=== PATIENT | female | born 1945 | race Caucasian/White ===

== ENCOUNTER → 2016-11-17 | Outpatient (CLI) | payer OTHER ==
[2016-07-14 06:31] VITALS: BP 132/74
--- NOTE | 2016-11-17 13:05 | VAS ---
HISTORY: History of DVT right lower extremity, bilateral ankle swelling Study: Venous Doppler Comparison: None TECHNIQUE: Multiple valladares scale and color flow Doppler images of the deep venous system were obtaine d of the right and left lower extremity. FINDINGS: There is normal respiratory phasicity, compression and augmentation of the lower extremity veins wit hout evidence of acute DVT. IMPRESSION: 1. Negative for DVT. Reported By:
== END ==
LOC: RAD 12:06
PROVIDERS: ATTEND Internal Medicine
DX: Z86.718 Personal history of other venous thrombosis and embolism (principal); I82.890 Acute embolism and thrombosis of other specified veins
CPT/HCPCS: 93970

== ENCOUNTER → 2017-06-08 | Outpatient (CLI) | payer OTHER ==
[2016-07-14 06:31] VITALS: BP 132/74
--- NOTE | 2017-06-08 17:35 | RAD ---
HISTORY: Surgical clearance for eye surgery Study: PA and lateral views of the chest Comparison: 07/14/2016 Findings: There is a right IJ port noted in stable position. The lungs are clear without consolidation, effusio n or pneumothorax. The cardiac and mediastinal contours are within normal limits. The soft tissues a re unremarkable. IMPRESSION: 1. No acute cardiopulmonary abnormality. Reported By:
== END | disposition home or self-care (01) | DRG 951 ==
LOC: RAD 17:05
PROVIDERS: ATTEND Internal Medicine
DX: Z01.811 Encounter for preprocedural respiratory examination (principal); H02.004 Unspecified entropion of left upper eyelid; H02.001 Unspecified entropion of right upper eyelid
CPT/HCPCS: 71020

== ENCOUNTER 2017-12-11 16:17 | Observation (INO) | payer OTHER ==
[2017-12-11] MEDS ORDERED: NS 250 ML IV 250 ML IV ONE (17:10)
[2017-12-11 17:44] LABS: BASOPHILS % (AUTO) 0.3 % (0.2-1.0); EOSINOPHILS % (AUTO) 0.3 % (0.9-2.9); HEMATOCRIT 40.7 % (36.0-47.0); HEMOGLOBIN 14.3 g/dL (12.0-16.0); LYMPHOCYTES # (AUTO) 1.5 X10^3/uL (1.3-2.9); MEAN CORPUSCULAR HEMOGLOBIN 33.2 pg (27.0-34.0); MEAN CORPUSCULAR VOLUME 94.7 fL (80.0-100.0); MEAN PLATELET VOLUME 8.2 fL (7.4-11.0); MONOCYTES # (AUTO) 0.4 x10^3/uL (0.3-0.8); MONOCYTES % (AUTO) 6.4 % (0.0-13.0); PLATELET COUNT 183 X10^3/uL (150.0-450.0); RED CELL DISTRIBUTION WIDTH 13.3 % (11.6-16.5); WHITE BLOOD COUNT 5.9 X10^3/uL (3.6-10.0)
--- NOTE | 2017-12-11 17:55 | RAD ---
Exam: Portable chest History: 72-year-old female with asthma and hypertension Comparison: Previous chest radiograph from 06/08/2017 Findings: Right chest wall port is identified with the tip extending to the superior vena cava. Borde rline cardiomegaly is present. No significant vascular congestion however. Lungs are clear with no in filtrate or significant effusion on either side. Impression: No acute cardiopulmonary abnormality is seen on this exam. Reported By:
[2017-12-11 18:05] LABS: ALANINE AMINOTRANSFERASE 62 Units/L (12-78); ALBUMIN 4.3 g/dL (3.4-5.0); ALKALINE PHOSPHATASE 81 Units/L (46-116); ASPARTATE AMINO TRANSFERASE 49 Units/L (15-37); BLOOD UREA NITROGEN 19 mg/dL (7-18); CALCIUM 9.4 mg/dL (8.5-10.1); CARBON DIOXIDE 24.2 mmol/L (21-32); CHLORIDE 97 mmol/L (98-107); CKMB % 1.2 % (<4); COR NA(FOR HYPERGLY) 134 mmol/L (136-145); CREATINE KINASE 86 Units/L (26-192); CREATINE KINASE MB < 1.0 ng/mL (0-4.0); CREATININE 1.94 mg/dL (0.55-1.02); SODIUM 134 mmol/L (136-145); TOTAL PROTEIN 8.6 g/dL (6.4-8.2); TROPONIN I < 0.02 ng/mL (0-1.5); eGFR BLACK RACES 33 (>60); eGFR NON BLACK RACES 27 (>60)
[2017-12-11 18:08] VITALS: BMI 21.7
[2017-12-11] MEDS: NS 1000 ML 1,000 ML IV SCH (18:10)
[2017-12-11 22:41] LABS: BILIRUBIN,URINE NEGATIVE (NEGATIVE); BLOOD/HEMOGLOBIN,URINE NEGATIVE (NEGATIVE); GLUCOSE, URINE NEGATIVE (NEGATIVE); KETONES,URINE NEGATIVE (NEGATIVE); LEUKOCYTE ESTERASE ,URINE 1+ (NEGATIVE); NITRITES,URINE NEGATIVE (NEGATIVE); PROTEIN,URINE 2+ (NEGATIVE); UROBILINOGEN,URINE NORMAL (NORMAL)
[2017-12-11 22:55] LABS: COLOR,URINE YELLOW (YELLOW)
[2017-12-11 22:56] LABS: APPEARANCE,URINE SLIGHTLY HAZY (CLEAR); BACTERIA,URINE 1+ /HPF (NEGATIVE); GRANULAR CASTS,URINE RARE /LPF (NEGATIVE); HYALINE CASTS, URINE FEW /LPF (NEGATIVE); MUCUS,URINE FEW /HPF (NEGATIVE); RBC,URINE 0-2 /HPF (NONE SEEN); SQUAMOUS EPITHELIAL CELL,UR FEW /HPF (NEGATIVE)
[2017-12-11 23:26] LABS: CKMB % 1.3 % (<4); CREATINE KINASE 76 Units/L (26-192); CREATINE KINASE MB < 1.0 ng/mL (0-4.0); TROPONIN I < 0.02 ng/mL (0-1.5)
[2017-12-12 01:45] LABS: CKMB % 1.5 % (<4); CREATINE KINASE 69 Units/L (26-192); CREATINE KINASE MB < 1.0 ng/mL (0-4.0); TROPONIN I < 0.02 ng/mL (0-1.5)
[2017-12-12] MEDS: NS 1000 ML 1,000 ML IV SCH ×3 (04:30→19:40)
[2017-12-12 06:51] LABS: BASOPHILS % (AUTO) 0.4 % (0.2-1.0); EOSINOPHILS # (AUTO) 0.1 x10^3/uL (0.0-0.2); EOSINOPHILS % (AUTO) 2.2 % (0.9-2.9); HEMOGLOBIN 12.4 g/dL (12.0-16.0); LYMPHOCYTES # (AUTO) 1.4 X10^3/uL (1.3-2.9); LYMPHOCYTES % (AUTO) 39.7 % (21.0-51.0); MEAN CORPUSCULAR HEMOGLOBIN 32.8 pg (27.0-34.0); MEAN CORPUSCULAR HGB CONC 34.5 g/dL (33.0-35.0); MEAN PLATELET VOLUME 8.2 fL (7.4-11.0); MONOCYTES # (AUTO) 0.4 x10^3/uL (0.3-0.8); MONOCYTES % (AUTO) 10.3 % (0.0-13.0); NEUTROPHILS # (AUTO) 1.7 x10^3/uL (2.2-4.8); NEUTROPHILS % (AUTO) 47.4 % (42.0-75.0); PLATELET COUNT 136 X10^3/uL (150.0-450.0); RED BLOOD COUNT 3.79 X10^6/uL (3.5-5.4); RED CELL DISTRIBUTION WIDTH 13.1 % (11.6-16.5); WHITE BLOOD COUNT 3.5 X10^3/uL (3.6-10.0)
[2017-12-12 06:56] LABS: ALANINE AMINOTRANSFERASE 49 Units/L (12-78); ALBUMIN 3.4 g/dL (3.4-5.0); ALKALINE PHOSPHATASE 63 Units/L (46-116); ASPARTATE AMINO TRANSFERASE 41 Units/L (15-37); BLOOD UREA NITROGEN 16 mg/dL (7-18); CALCIUM 8.5 mg/dL (8.5-10.1); CARBON DIOXIDE 23.6 mmol/L (21-32); CHLORIDE 104 mmol/L (98-107); CREATININE 1.38 mg/dL (0.55-1.02); SODIUM 137 mmol/L (136-145); TOTAL PROTEIN 6.9 g/dL (6.4-8.2); eGFR BLACK RACES 49 (>60); eGFR NON BLACK RACES 40 (>60)
[2017-12-12] MEDS: ROCEPHIN VIAL 1 GM 1 GM in NS 100 ML IV + SPIKE MINIBAG* 100 ML IV SCH (08:31)
[2017-12-12] MEDS ORDERED: ROCEPHIN 1 GM IV PREMIX 1 GM/50 ML IV.SOLN. IV SCH (09:00)
[2017-12-12] MEDS ORDERED: XANAX PO PRN (10:37)
[2017-12-12] MEDS ORDERED: ARTIFICIAL TEARS DROPS AFFEYE SCH (10:38)
[2017-12-12] MEDS ORDERED: LEXAPRO ONE (10:50)
[2017-12-12] MEDS: LEXAPRO PO SCH (10:57)
[2017-12-12] MEDS: SYNTHROID 125 mcg TAB PO SCH (10:57)
[2017-12-12] MEDS: XARELTO PO SCH (10:57)
--- NOTE | 2017-12-12 11:43 | DR.UPDATE ---
H&P Update History and Physical Update: WAS SEEN IN THE OFFICE TODAY. A H&P WAS COMPLETED PRIOR TO ADMISSION. SHE WAS ADMITTED FOR HYPOTENSION, AND DIZZINESS. PATIENT HAS BEEN SEEN AND EXAMINED WITH NO CHANGES NOTED TO H&P. Changes noted: NO Yes with the following:
--- NOTE | 2017-12-12 11:51 | PCM.PROG ---
Progress Note - Progress Note for Day of Date: 12/12/17 - Subjective Subjective: WAS ADMITTED FOR HYPOTENSION AND DIZZINESS. TODAY, SHE IS ALERT AND ORIENTED, LYING IN BED ON MORNING ROUNDS. SHE REPORTS GENERALIZED WEAKNESS, BUT DENIES DIZZINESS TODAY. ON EXAMINATION, HEART IS REGULAR IN RATE AND RHYTHM. BILATERAL LUNGS ARE CLEAR TO AUSCULTATION ABDOMEN IS ROUND, SOFT, AND NON-TENDER WITH NORMAL BOWEL SOUNDS NOTED TO ALL QUADRANTS. HER VITALS THIS MORNING ARE 98.0-49-18-98%-100/56. ABNORMAL LAB VALUES INCLUDE THE FOLLOWING: WBC 3.5, CREATININE 1.38, AST 41. ON ADMISSION, A URINALYSIS REVEALED WBC 5-10, RBC 0-2, BACTERIA 1+, LEUKOCYTES 1+. CARDIAC ENZYMES AND EKGS HAVE BEEN WITHIN NORMAL LIMTIS. TODAY, WE WILL START ROCEPHIN 1GM IV DAILY AND CONTINUE WITH IV HYDRATION. WE WILL RESUME HOME MEDICATIONS. OTHERWISE, WE PLAN TO FOLLOW UP WITH AM LABS AND CONTINUE TO MONITOR PATIENT. - Past Medical Family Social History Past Med/Fam/Surg Hx: No changes since H&P Allergies: Allergies Penicillins Allergy (Verified 12/12/17 09:01) - Review of Systems ROS: No change since H&P - Vital Signs and I&O's Vital Signs: Temperature 98.0 F Pulse Rate [Left Brachial] 49 Respiratory Rate 18 Blood Pressure [Left Arm] 100/56 Blood Pressure [Right Arm] 101/60 Blood Pressure 132/74 O2 Sat by Pulse Oximetry 98 Intake and Output: Intake & Output 12/09/17 12/10/17 12/11/17 12/12/17 11:59 11:59 11:59 11:59 Intake Total 1803 Output Total 500 Balance 1303 - Physical Exam Oriented: Normal Eyes: Normal Ear: Normal Nose: Normal Throat: Normal Respiratory: Normal Cardiovascular: Normal : Normal Auscultation: Bowel Sounds: Normal Palpation: Normal Tenderness: Normal Skin: Normal Musculoskeletal: Normal Psychiatric: Normal Mood Description: Calm Affect: Normal Speech Pattern: Clear, Appropriate - Laboratory and Diagnostics Result Diagrams: 12/12/17 06:30 12/12/17 06:30 Labs: Laboratory WBC 3.5 X10^3/uL (3.6-10.0) L 12/12/17 06:30 RBC 3.79 X10^6/uL (3.5-5.4) 12/12/17 06:30 Hgb 12.4 g/dL (12.0-16.0) 12/12/17 06:30 Hct 36.0 % (36.0-47.0) 12/12/17 06:30 MCV 95.0 fL (80.0-100.0) 12/12/17 06:30 MCH 32.8 pg (27.0-34.0) 12/12/17 06:30 MCHC 34.5 g/dL (33.0-35.0) 12/12/17 06:30 RDW 13.1 % (11.6-16.5) 12/12/17 06:30 Plt Count 136 X10^3/uL (150.0-450.0) L 12/12/17 06:30 MPV 8.2 fL (7.4-11.0) 12/12/17 06:30 Neut % (Auto) 47.4 % (42.0-75.0) 12/12/17 06:30 Lymph % (Auto) 39.7 % (21.0-51.0) 12/12/17 06:30 [place] % (Auto) 10.3 % (0.0-13.0) 12/12/17 06:30 Eos % (Auto) 2.2 % (0.9-2.9) 12/12/17 06:30 Baso % (Auto) 0.4 % (0.2-1.0) 12/12/17 06:30 Neut # (Auto) 1.7 x10^3/uL (2.2-4.8) L 12/12/17 06:30 Lymph # (Auto) 1.4 X10^3/uL (1.3-2.9) 12/12/17 06:30 [place] # (Auto) 0.4 x10^3/uL (0.3-0.8) 12/12/17 06:30 Eos # (Auto) 0.1 x10^3/uL (0.0-0.2) 12/12/17 06:30 Baso # (Auto) 0.0 X10^3/uL (0.0-0.1) 12/12/17 06:30 Absolute Nucleated RBC 0.0 /100WBC 05/08/18 06:30 Sodium 137 mmol/L (136-145) 12/12/17 06:30 Corrected Sodium TNP 12/12/17 06:30 Potassium 3.7 mmol/L (3.5-5.1) 12/12/17 06:30 Chloride 104 mmol/L (98-107) 12/12/17 06:30 Carbon Dioxide 23.6 mmol/L (21-32) 12/12/17 06:30 BUN 16 mg/dL (7-18) 12/12/17 06:30 Creatinine 1.38 mg/dL (0.55-1.02) H 12/12/17 06:30 Est GFR (MDRD) Af Amer 49 (>60) L 12/12/17 06:30 Est GFR (MDRD) Non-Af 40 (>60) L 12/12/17 06:30 Glucose 86 mg/dL (65-99) 12/12/17 06:30 Calcium 8.5 mg/dL (8.5-10.1) 12/12/17 06:30 Corrected Calcium TNP 12/12/17 06:30 Total Bilirubin 0.90 mg/dL (0.2-1.0) 12/12/17 06:30 AST 41 Units/L (15-37) H 12/12/17 06:30 ALT 49 Units/L (12-78) 12/12/17 06:30 Alkaline Phosphatase 63 Units/L (46-116) 12/12/17 06:30 Creatine Kinase 69 Units/L (26-192) 12/12/17 01:13 CK-MB (CK-2) < 1.0 ng/mL (0-4.0) 12/12/17 01:13 CK/CKMB % Calc 1.5 % (<4) 12/12/17 01:13 Troponin I < 0.02 ng/mL (0-1.5) 12/12/17 01:13 Total Protein 6.9 g/dL (6.4-8.2) 12/12/17 06:30 Albumin 3.4 g/dL (3.4-5.0) 12/12/17 06:30 Globulin 3.5 g/dL (2.5-4.5) 12/12/17 06:30 Albumin/Globulin Ratio 1.0 Ratio (1.1-2.1) L 12/12/17 06:30 Specimen Type Clean catch urine 12/11/17 22:31 Urine Color Yellow (YELLOW) 12/11/17 22: Urine Appearance Slightly hazy (CLEAR) 12/11/17 22:31 Urine pH 5.0 (5.0 - 8.0) 12/11/17 22:31 Ur Specific [place] 1.020 (1.000-1.030) 12/11/17 22:31 Urine Protein 2+ (NEGATIVE) 12/11/17 22:31 Urine Glucose (UA) Negative (NEGATIVE) 12/11/17 22: Urine Ketones Negative (NEGATIVE) 12/11/17 22: Urine Occult Blood Negative (NEGATIVE) 12/11/17 22: Urine Nitrite Negative (NEGATIVE) 12/11/17 22: Urine Bilirubin Negative (NEGATIVE) 12/11/17 22:31 Urine Urobilinogen Normal (NORMAL) 12/11/17 22:31 Ur Leukocyte Esterase 1+ (NEGATIVE) 12/11/17 22: Urine RBC 0-2 /HPF (NONE SEEN) 12/11/17 22:31 Urine WBC 5-10 /HPF (NONE SEEN) 12/11/17 22:31 Ur Squamous Epith Cells Few /HPF (NEGATIVE) 12/11/17 22:31 Urine Bacteria 1+ /HPF (NEGATIVE) 12/11/17 22:31 Hyaline Casts Few /LPF (NEGATIVE) 12/11/17 22:31 Granular Casts Rare /LPF (NEGATIVE) 12/11/17 22:31 Urine Mucus Few /HPF (NEGATIVE) 12/11/17 22:31 Ur Culture Indicated? Yes/culture set up 12/11/17 22:31 - Plan (1) Hypotension Status: Acute Qualifiers: Hypotension type: unspecified hypotension type Qualified Code(s): I95.9 - Hypotension, unspecified Plan: NORMAL SALINE AT 75ML/HR, CONTINUE TO MONITOR (2) Dizziness Status: Acute (3) Dehydration Status: Acute Plan: NORMAL SALINE AT 75ML/HR, CONTINUE TO MONITOR (4) Urinary tract infection Status: Acute Qualifiers: Urinary tract infection type: acute cystitis Hematuria presence: without hematuria Qualified Code(s): N30.00 - Acute cystitis without hematuria Plan: ROCEPHIN 1GM IV DAILY, CONTINUE TO MONITOR
[2017-12-13 06:36] LABS: BASOPHILS % (AUTO) 0.7 % (0.2-1.0); EOSINOPHILS # (AUTO) 0.1 x10^3/uL (0.0-0.2); EOSINOPHILS % (AUTO) 2.7 % (0.9-2.9); HEMATOCRIT 34.9 % (36.0-47.0); HEMOGLOBIN 12.2 g/dL (12.0-16.0); LYMPHOCYTES # (AUTO) 1.1 X10^3/uL (1.3-2.9); LYMPHOCYTES % (AUTO) 33.2 % (21.0-51.0); MEAN CORPUSCULAR HEMOGLOBIN 33.2 pg (27.0-34.0); MEAN CORPUSCULAR HGB CONC 34.9 g/dL (33.0-35.0); MEAN CORPUSCULAR VOLUME 95.1 fL (80.0-100.0); MONOCYTES # (AUTO) 0.3 x10^3/uL (0.3-0.8); MONOCYTES % (AUTO) 10.3 % (0.0-13.0); NEUTROPHILS # (AUTO) 1.8 x10^3/uL (2.2-4.8); NEUTROPHILS % (AUTO) 53.1 % (42.0-75.0); PLATELET COUNT 128 X10^3/uL (150.0-450.0); RED BLOOD COUNT 3.67 X10^6/uL (3.5-5.4); RED CELL DISTRIBUTION WIDTH 12.9 % (11.6-16.5); WHITE BLOOD COUNT 3.4 X10^3/uL (3.6-10.0)
[2017-12-13 07:01] LABS: ALANINE AMINOTRANSFERASE 47 Units/L (12-78); ALBUMIN 3.1 g/dL (3.4-5.0); ALKALINE PHOSPHATASE 58 Units/L (46-116); ASPARTATE AMINO TRANSFERASE 38 Units/L (15-37); BLOOD UREA NITROGEN 9 mg/dL (7-18); CALCIUM 7.7 mg/dL (8.5-10.1); CARBON DIOXIDE 22.6 mmol/L (21-32); CHLORIDE 106 mmol/L (98-107); COR CA(FOR HYPOALB) 8.4 mg/dL (8.5-10.1); CREATININE 1.19 mg/dL (0.55-1.02); SODIUM 140 mmol/L (136-145); TOTAL PROTEIN 6.4 g/dL (6.4-8.2); eGFR BLACK RACES 58 (>60); eGFR NON BLACK RACES 48 (>60)
[2017-12-13] MEDS ORDERED: LEXAPRO ONE (08:05)
[2017-12-13] MEDS: XARELTO PO SCH (08:30)
[2017-12-13] MEDS: ROCEPHIN VIAL 1 GM 1 GM in NS 100 ML IV + SPIKE MINIBAG* 100 ML IV SCH (08:30)
[2017-12-13] MEDS: LEXAPRO PO SCH (08:30)
[2017-12-13] MEDS: SYNTHROID 125 mcg TAB PO SCH (08:30)
[2017-12-13 08:43] VITALS: BP 113/59
[2017-12-13] MEDS ORDERED: PATIENT'S HOME MEDICATION OP SCH (09:00)
[2017-12-13] MEDS: NS 1000 ML 1,000 ML IV SCH (10:29)
== END 2017-12-13 13:00 | disposition home or self-care (01) ==
LOC: OBS 16:17
PROVIDERS: ADMIT Internal Medicine; ATTEND Internal Medicine
DX: I95.9 Hypotension, unspecified (principal); R42 Dizziness and giddiness; E86.0 Dehydration; N30.00 Acute cystitis without hematuria; R94.31 Abnormal electrocardiogram [ECG] [EKG]; Z86.2 Personal history of diseases of the blood and blood-forming organs and certain disorders involving the immune mechanism
CPT/HCPCS: 36415; 70450; 71045; 80053; 81001; 82550; 82553; 84484; 85025; 86140; 87086; 93005; 94760; 96365; 96374; 99284; A4216; A4222; G0378; J0696; J2270

== ENCOUNTER 2017-12-13 22:05 | Observation (INO) | payer OTHER ==
--- NOTE | 2017-12-13 22:52 | DR.GENAD ---
HPI - PCP Primary Care Physician: WANDA - Complaint/Symptoms Chief Complaint Doctors Comments: The grandson reports that he was talking to patient while she was in the recliner and she passed out s/p hyperventilating. She did not awakened until approximately ten minutes. She was then brought to the ED for evaluation. She was alert in no acute distress. She was discharged from the hospital earlier today. Chief Complaint:: POSSIBLE SYNCOPAL EPISODE, ABRASION TO LEFT FORMAN, Self Treatment fo Chief Complaint: NONE - Source History Provided: Patient - Mode of Arrival Mode of Arrival: Stretcher - Timing Onset of Chief Complaint: 12/13/17 PMH - PMH Past Medical History: Yes Past Medical History: Hypothyroidism, PUD Past Surgical History: Yes Surgical History: Cholecystectomy, Hysterectomy - Family History History of Family Medical Conditions: Yes Family Medical History: Cancer, Hypertension - Social History Does patient currently use any type of tobacco product: No Have you used tobacco products in the last 12 months: No Type of Tobacco Use: None Does any household member use tobacco: No Alcohol Use: None Do you use any recreational Drugs:: No Lives With: Family Lives Where: Home - infectious screening In the last 2 months have you had wt loss of >10#?: NO Have you had fever, night sweats or hemotysis?: No Have you traveled outside the country in the last 6 months?: No Isolation: Standard ROS - Review of Systems Eyes: No Symptoms Reported ENTM: No Symptoms Reported Respiratoy: No Symptoms Reported Cardiovascular: No Symptoms Reported Gastrointestinal/Abdominal: No Symptoms Reported Genitourinary: No Symptoms Reported Neurological: No Symptoms Reported Musculoskeletal: No Symptoms Reported Integumentary: No Symptoms Reported Hematologic/Lymphatic: No Symptoms Reported Endocrine: No Symptoms Reported Psychiatric: No Symptoms Reported All Other Systems: Reviewed and Negative PE - Vital Signs Vitals: Temperature 98.1 F Pulse Rate [Right Brachial] 64 Pulse Rate 74 Respiratory Rate 16 Blood Pressure [Left Arm] 113/59 Blood Pressure [Right Arm] 111/59 Blood Pressure 123/66 O2 Sat by Pulse Oximetry 99 - General Limitations: No Limitations General Appearance: Alert, In No Apparent Distress - Head Head Exam: Normal Inspection, Atraumatic - Eyes Eye exam: Normal Appearance, PERRL, EOMI - ENT ENT Exam: Normal Exam, Normal Oropharynx, Normal External Ear Exam External Ear Exam: Normal External Inspection TM/Canal Exam: Bilateral Normal Nose Exam: Normal Nose Exam Mouth Exam: Normal Inspection Throat Exam: Normal Inspection - Neck Neck Exam: Normal Inspection - Chest Chest Inspection: Normal Inspection - Respiratory Respiratory Exam: Normal Lung Sounds Bilat Respiratory Exam: Bilateral Clear to Auscultation - Cardiovascular Cardiovascular Exam: Regular Rate, Normal Rhythm - Abdominal Exam Abdominal Exam: Normal Inspection, Normal Bowel Sounds Abdominal Tenderness: Other (iliostomy). negative: RUQ, RLQ, LUQ, LLQ, Epigastrium, Suprapubic, Diffuse, Mild, Moderate, Severe - Extremities Extremities Exam: Normal Inspection, Full ROM - Back Back Exam: Normal Inspection - Neurologic Neurological Exam: Alert, Oriented X3, CN II-XII Intact - Psychiatric Psychiatric Exam: Normal Affect - Skin Skin Exam: Warm, Dry, Intact Course - Consultation Called: 00:25 (Dr Arredondo agreed to admit for further evaluation) ROR - Labs Reviewed Result Diagrams: 12/13/17 23:16 12/13/17 23:16 Laboratory: WBC 12.3 X10^3/uL (3.6-10.0) H D 12/13/17 23:16 RBC 4.41 X10^6/uL (3.5-5.4) 12/13/17 23:16 Hgb 14.6 g/dL (12.0-16.0) D 12/13/17 23:16 Hct 43.3 % (36.0-47.0) 12/13/17 23:16 MCV 98.3 fL (80.0-100.0) 12/13/17 23:16 MCH 33.2 pg (27.0-34.0) 12/13/17 23:16 MCHC 33.8 g/dL (33.0-35.0) 12/13/17 23:16 RDW 13.2 % (11.6-16.5) 12/13/17 23:16 Plt Count 147 X10^3/uL (150.0-450.0) L 12/13/17 23:16 MPV 8.3 fL (7.4-11.0) 12/13/17 23:16 Neut % (Auto) 84.1 % (42.0-75.0) H 12/13/17 23:16 Lymph % (Auto) 9.1 % (21.0-51.0) L 12/13/17 23:16 [place] % (Auto) 6.5 % (0.0-13.0) 12/13/17 23:16 Eos % (Auto) 0.1 % (0.9-2.9) L 12/13/17 23:16 Baso % (Auto) 0.2 % (0.2-1.0) 12/13/17 23:16 Neut # (Auto) 10.3 x10^3/uL (2.2-4.8) H 12/13/17 23:16 Lymph # (Auto) 1.1 X10^3/uL (1.3-2.9) L 12/13/17 23:16 [place] # (Auto) 0.8 x10^3/uL (0.3-0.8) 12/13/17 23:16 Eos # (Auto) 0.0 x10^3/uL (0.0-0.2) 12/13/17 23:16 Baso # (Auto) 0.0 X10^3/uL (0.0-0.1) 12/13/17 23:16 Absolute Nucleated RBC 0.1 /100WBC 12/13/17 23:16 Sodium 138 mmol/L (136-145) 12/13/17 23:16 Corrected Sodium 139 mmol/L (136-145) 12/13/17 23:16 Potassium 3.9 mmol/L (3.5-5.1) 12/13/17 23:16 Chloride 101 mmol/L (98-107) 12/13/17 23:16 Carbon Dioxide 16.1 mmol/L (21-32) L 12/13/17 23:16 BUN 10 mg/dL (7-18) 12/13/17 23:16 Creatinine 1.65 mg/dL (0.55-1.02) H 12/13/17 23:16 Est GFR (MDRD) Af Amer 40 (>60) L 12/13/17 23:16 Est GFR (MDRD) Non-Af 33 (>60) L 12/13/17 23:16 Glucose 156 mg/dL (65-99) H 12/13/17 23:16 Calcium 8.8 mg/dL (8.5-10.1) 12/13/17 23:16 Corrected Calcium TNP 12/13/17 23:16 Total Bilirubin 0.60 mg/dL (0.2-1.0) 12/13/17 23:16 AST 54 Units/L (15-37) H 12/13/17 23:16 ALT 58 Units/L (12-78) 12/13/17 23:16 Alkaline Phosphatase 74 Units/L (46-116) 12/13/17 23:16 C-Reactive Protein 0.80 mg/L (0-3.0) 12/13/17 23:16 Total Protein 8.0 g/dL (6.4-8.2) 12/13/17 23:16 Albumin 3.9 g/dL (3.4-5.0) 12/13/17 23:16 Globulin 4.1 g/dL (2.5-4.5) 12/13/17 23:16 Albumin/Globulin Ratio 1.0 Ratio (1.1-2.1) L 12/13/17 23:16 - XRAY XRAY Interpreted by: Radiologist (CT Brain: There is no acute intracranial hemorrhage, mass or mass effect. Ventricles and sulci are relatively normal. No extra axial fluid collection or abnormal area of hypoattenuation suggest infarction seen. Review of bone windows shows clear paranasal sinuses and mastoid air cells. No osseous lesion identified. Impression: No acute intracranial hemorrhage or change from the prior. Chest: No acute chest proces. kBorderline enlarged heart.) - Diagnosis Discharge Problem: Syncope Qualifiers: Syncope type: unspecified Qualified Code(s): R55 - Syncope and collapse - Discharge Plan Condition: Stable - Follow ups/Referrals Follow ups/Referrals: Israel Soni [Primary Care Provider] - 3 days - Instructions
[2017-12-13] MEDS ORDERED: MORPHINE SULFATE INJ 2 MG INJ IVP ONE (23:04)
[2017-12-13] MEDS ORDERED: MORPHINE SULFATE INJ 2 MG INJ ONE (23:09)
[2017-12-13 23:27] LABS: BASOPHILS % (AUTO) 0.2 % (0.2-1.0); EOSINOPHILS % (AUTO) 0.1 % (0.9-2.9); HEMATOCRIT 43.3 % (36.0-47.0); HEMOGLOBIN 14.6 g/dL (12.0-16.0); LYMPHOCYTES # (AUTO) 1.1 X10^3/uL (1.3-2.9); LYMPHOCYTES % (AUTO) 9.1 % (21.0-51.0); MEAN CORPUSCULAR HEMOGLOBIN 33.2 pg (27.0-34.0); MEAN CORPUSCULAR HGB CONC 33.8 g/dL (33.0-35.0); MEAN CORPUSCULAR VOLUME 98.3 fL (80.0-100.0); MEAN PLATELET VOLUME 8.3 fL (7.4-11.0); MONOCYTES # (AUTO) 0.8 x10^3/uL (0.3-0.8); MONOCYTES % (AUTO) 6.5 % (0.0-13.0); NEUTROPHILS # (AUTO) 10.3 x10^3/uL (2.2-4.8); NEUTROPHILS % (AUTO) 84.1 % (42.0-75.0); PLATELET COUNT 147 X10^3/uL (150.0-450.0); RED BLOOD COUNT 4.41 X10^6/uL (3.5-5.4); RED CELL DISTRIBUTION WIDTH 13.2 % (11.6-16.5); WHITE BLOOD COUNT 12.3 X10^3/uL (3.6-10.0)
[2017-12-13 23:35] LABS: ALANINE AMINOTRANSFERASE 58 Units/L (12-78); ALBUMIN 3.9 g/dL (3.4-5.0); ALKALINE PHOSPHATASE 74 Units/L (46-116); ASPARTATE AMINO TRANSFERASE 54 Units/L (15-37); BLOOD UREA NITROGEN 10 mg/dL (7-18); CALCIUM 8.8 mg/dL (8.5-10.1); CARBON DIOXIDE 16.1 mmol/L (21-32); CHLORIDE 101 mmol/L (98-107); COR NA(FOR HYPERGLY) 139 mmol/L (136-145); CREATININE 1.65 mg/dL (0.55-1.02); SODIUM 138 mmol/L (136-145); eGFR BLACK RACES 40 (>60); eGFR NON BLACK RACES 33 (>60)
--- NOTE | 2017-12-13 23:46 | RAD ---
Chest AP portable Indication: Syncope and altered mental status Comparison: 12/11/2017 Findings: Port-A-Cath tip is over the SVC. There is no pneumothorax, large effusion or dense consolid ation. Heart size upper limits of normal for technique. Impression: No acute chest process. Borderline enlarged heart Reported By:
--- NOTE | 2017-12-13 23:48 | CT ---
CT head without contrast Indication: Syncope and altered mental status Comparison: 07/14/2016 Technique: Axial images from the skullbase to the vertex without contrast. Coronal and sagittal refor mats provided. Findings: There is no acute intracranial hemorrhage, mass or mass effect. Ventricles and sulci are re latively normal. No extra-axial fluid collection or abnormal area of hypoattenuation suggest infarcti on seen. Review of bone windows shows clear paranasal sinuses and mastoid air cells. No osseous lesion identif ied. Impression: No acute intracranial hemorrhage or change from the prior Reported By:
[2017-12-14 00:56] LABS: CKMB % 1.1 % (<4); CREATINE KINASE 291 Units/L (26-192); CREATINE KINASE MB 3.1 ng/mL (0-4.0); TROPONIN I < 0.02 ng/mL (0-1.5)
[2017-12-14] MEDS: NS 1000 ML 1,000 ML IV SCH ×2 (02:45→18:09)
[2017-12-14 02:55] VITALS: BMI 22.4
[2017-12-14 05:07] LABS: BILIRUBIN,URINE NEGATIVE (NEGATIVE); BLOOD/HEMOGLOBIN,URINE 2+ (NEGATIVE); GLUCOSE, URINE NEGATIVE (NEGATIVE); KETONES,URINE 3+ (NEGATIVE); LEUKOCYTE ESTERASE ,URINE NEGATIVE (NEGATIVE); NITRITES,URINE NEGATIVE (NEGATIVE); PROTEIN,URINE 1+ (NEGATIVE); UROBILINOGEN,URINE NORMAL (NORMAL)
[2017-12-14 05:16] LABS: APPEARANCE,URINE CLEAR (CLEAR); COLOR,URINE YELLOW (YELLOW); RBC,URINE 0-2 /HPF (NONE SEEN)
[2017-12-14 05:17] LABS: BACTERIA,URINE NEGATIVE /HPF (NEGATIVE); MUCUS,URINE FEW /HPF (NEGATIVE); SQUAMOUS EPITHELIAL CELL,UR FEW /HPF (NEGATIVE)
[2017-12-14 05:23] LABS: ALBUMIN 3.3 g/dL (3.4-5.0); CALCIUM 8.1 mg/dL (8.5-10.1); CARBON DIOXIDE 21.3 mmol/L (21-32); COR CA(FOR HYPOALB) 8.7 mg/dL (8.5-10.1); CREATININE 1.32 mg/dL (0.55-1.02); TOTAL PROTEIN 6.7 g/dL (6.4-8.2)
[2017-12-14 05:29] LABS: BASOPHILS % (AUTO) 0.2 % (0.2-1.0); HEMATOCRIT 34.6 % (36.0-47.0); LYMPHOCYTES # (AUTO) 1.1 X10^3/uL (1.3-2.9); LYMPHOCYTES % (AUTO) 12.2 % (21.0-51.0); MEAN CORPUSCULAR HEMOGLOBIN 32.8 pg (27.0-34.0); MEAN CORPUSCULAR HGB CONC 34.7 g/dL (33.0-35.0); MEAN CORPUSCULAR VOLUME 94.5 fL (80.0-100.0); MEAN PLATELET VOLUME 8.1 fL (7.4-11.0); MONOCYTES # (AUTO) 0.5 x10^3/uL (0.3-0.8); NEUTROPHILS # (AUTO) 7.2 x10^3/uL (2.2-4.8); NEUTROPHILS % (AUTO) 81.6 % (42.0-75.0); PLATELET COUNT 152 X10^3/uL (150.0-450.0); RED BLOOD COUNT 3.67 X10^6/uL (3.5-5.4); WHITE BLOOD COUNT 8.8 X10^3/uL (3.6-10.0)
[2017-12-14] MEDS ORDERED: CARBOXYMETHYLCELLULOSE SODIUM AFFEYE SCH (09:45)
[2017-12-14] MEDS ORDERED: PATIENT'S HOME MEDICATION (Misc Home Med 1 EA) AFFEYE SCH (09:45)
[2017-12-14] MEDS ORDERED: PATIENT'S HOME MEDICATION (Rivaroxaban [Xarelto] 20 MG) PO SCH (09:45)
[2017-12-14] MEDS ORDERED: LEXAPRO ONE (10:48)
--- NOTE | 2017-12-14 11:49 | VAS ---
HISTORY: Concern for carotid artery stenosis. Syncope. Technique: Multiple valladares scale and color flow Doppler images of the right and left carotid arterial s ystem were obtained. The vertebral arterial system was evaluated as well. Findings: Nonocclusive color flow Doppler is seen throughout the right and left carotid arterial system. No hem odynamically significant carotid arterial stenosis is seen based on velocity criteria. There is mild bilateral carotid intimal thickening but without evidence for high-grade stenosis (>70%) or occlusion of the carotid arteries. The right and left vertebral artery demonstrate antegrade flow. IMPRESSION: Mild bilateral carotid intimal thickening but without evidence for high-grade stenosis or occlusion o f the carotid arteries, based on Doppler velocity criteria. Appropriate, antegrade, vertebral arterial flow. Peak right ICA velocity: 75 centimeter/seconds. Peak right CCA velocity: 72 centimeter/seconds. Peak left ICA velocity: 75 centimeter/seconds. Peak left CCA velocity: 96 centimeter/seconds. Right ICA to CCA ratio: 1.1. Left ICA to CCA ratio: 0.78. Reported By:
[2017-12-14] MEDS: LEXAPRO PO SCH (11:50)
[2017-12-14] MEDS: CIPRO IV 400 MG PREMIX* 400 MG/200 ML IV.SOLN. IV SCH ×2 (11:50→20:52)
[2017-12-14] MEDS: SYNTHROID 125 mcg TAB PO SCH (11:50)
[2017-12-14] MEDS: XARELTO PO SCH (11:51)
--- NOTE | 2017-12-14 11:51 | MRI ---
HISTORY: Dizziness. Blurred vision. Study: MR brain without contrast. Comparison: Head CT dated 12/13/2017. Technique: Multiplanar multi-sequence MRI of the brain was obtained without contrast utilizing a [facility] departmental protocol pre Findings: The midline structures are unremarkable. The evaluation of the brain parenchyma demonstrat es no abnormal signal characteristics to suggest intraparenchymal mass or hemorrhage. No extra-axial fluid collections are observed. The ventricular system is symmetric and nondilated. The CP angle is normal in its appearance without brainstem mass or evidence for acoustic neuroma. The flow voids on both T1 and T2 weighted imaging for unremarkable. Evaluation of the diffusion weighted imaging do es not demonstrate abnormal signal characteristics to suggest acute ischemic change. The extracrania l structures are unremarkable. IMPRESSION: Unremarkable MRI of the brain without contrast. Reported By:
--- NOTE | 2017-12-14 11:56 | MRI ---
HISTORY: Dizziness. Blurred vision. Near syncope. Study: MR angiogram of the brain without contrast. Comparison: Head CT dated 12/13/2017. Technique: 3-D [id number] imaging of the intracranial circulation was performed. Findings: The anterior circulation demonstrates normal anatomic findings. The internal carotid arter y, M1 segments, and A1 segments are patent without evidence of flow-limiting stenosis. No aneurysmal changes or evidence for vascular malformation can be identified. There is a origin of the pos terior cerebral artery on the left with absent P1 segment on the left. There is a small posterior cer ebral artery on the right. The basal vertebral system is normal in its appearance with dominant righ t vertebral artery. IMPRESSION: origin of the [employer] on the left with absent ipsilateral P1 segment. Otherwise, unremarkable MRA o f the brain. Reported By:
[2017-12-15 05:23] LABS: BASOPHILS % (AUTO) 0.2 % (0.2-1.0); EOSINOPHILS # (AUTO) 0.1 x10^3/uL (0.0-0.2); EOSINOPHILS % (AUTO) 1.5 % (0.9-2.9); HEMATOCRIT 35.9 % (36.0-47.0); HEMOGLOBIN 12.2 g/dL (12.0-16.0); LYMPHOCYTES % (AUTO) 29.1 % (21.0-51.0); MEAN CORPUSCULAR HGB CONC 33.9 g/dL (33.0-35.0); MEAN CORPUSCULAR VOLUME 97.3 fL (80.0-100.0); MEAN PLATELET VOLUME 8.3 fL (7.4-11.0); MONOCYTES # (AUTO) 0.5 x10^3/uL (0.3-0.8); MONOCYTES % (AUTO) 7.3 % (0.0-13.0); NEUTROPHILS # (AUTO) 4.2 x10^3/uL (2.2-4.8); NEUTROPHILS % (AUTO) 61.9 % (42.0-75.0); PLATELET COUNT 154 X10^3/uL (150.0-450.0); RED BLOOD COUNT 3.69 X10^6/uL (3.5-5.4); RED CELL DISTRIBUTION WIDTH 13.4 % (11.6-16.5); WHITE BLOOD COUNT 6.8 X10^3/uL (3.6-10.0)
[2017-12-15] MEDS: NS 1000 ML 1,000 ML IV SCH ×3 (05:31→19:55)
[2017-12-15 05:33] LABS: ALANINE AMINOTRANSFERASE 44 Units/L (12-78); ALBUMIN 3.2 g/dL (3.4-5.0); ALKALINE PHOSPHATASE 63 Units/L (46-116); ASPARTATE AMINO TRANSFERASE 48 Units/L (15-37); BLOOD UREA NITROGEN 6 mg/dL (7-18); CALCIUM 8.7 mg/dL (8.5-10.1); CARBON DIOXIDE 22.2 mmol/L (21-32); CHLORIDE 110 mmol/L (98-107); COR CA(FOR HYPOALB) 9.3 mg/dL (8.5-10.1); SODIUM 144 mmol/L (136-145); TOTAL PROTEIN 6.7 g/dL (6.4-8.2); eGFR BLACK RACES 48 (>60); eGFR NON BLACK RACES 40 (>60)
[2017-12-15] MEDS ORDERED: LEXAPRO ONE (08:31)
[2017-12-15] MEDS: VITAMIN D3 PO SCH (08:38)
[2017-12-15] MEDS: CIPRO IV 400 MG PREMIX* 400 MG/200 ML IV.SOLN. IV SCH ×2 (08:38→20:00)
[2017-12-15] MEDS: XARELTO PO SCH (08:38)
[2017-12-15] MEDS: SYNTHROID 125 mcg TAB PO SCH (08:38)
[2017-12-15] MEDS: LEXAPRO PO SCH (08:38)
--- NOTE | 2017-12-15 18:33 | DR.UPDATE ---
H&P Update History and Physical Update: History and Physical reviewed and patient examined. Changes noted: Yes with the following: H&P was completed on 2017 with her previous admission for hypotension and dizziness. She was discharged on 12/13/2017. Patient returned to the emergency room with on 2017 with reports of a syncopal episode after a hyperventilating episode. Syncopal episode reportedly lasted about ten minutes before patient would awaken. Patient was reportedly sitting in the recliner when episode occurred with no fall or injury noted. On arrival, vitals were 98.1, 66, 22, 99% RA, 123/ 60. Labs were obtained. Abnormal Labs include the following: Hct 34.6, Creatine Kinase 291, Creatinine 1.32, GFR af 51, GFR non 42, Glucose 115, Calcium 8.1, AST 40, Albumin 3.3, A/G Ratio 1.0. Urinalysis revealed: Protein 1+, Ketones 3+ , Occult Blood 2+, RBC 0-2, WBC 0-2, Mucus Few. Chest X-Ray revealed: No acute chest process. Borderline enlarged heart. Brain CT revealed: No acute intracranial hemorrhage or change from the prior. EKG revealed: Sinus Rhythm. Rate=66. Patient admitted as observation for further evaluation and treatment. She was started on normal saline at 80ml/hr. We plan to follow up with AM labs and continue to monitor patient.
--- NOTE | 2017-12-15 21:57 | PCM.PROG ---
Progress Note - Progress Note for Day of Date: 12/15/17 - Subjective Subjective: WAS ADMITTED FOR A SYNCOPAL EPISODE. TODAY, SHE IS ALERT AND ORIENTED, LYING IN BED ON MORNING ROUNDS. TODAY, SHE IS NOTED WITH COMPLAINTS OF DIZZINESS AND GENERALIZED WEAKNESS. FAMILY REPORT THAT PATIENT IS HAVING DIFFICULTY SPEAKING. PATIENT REPORTS THAT SHE KNOWS WHAT SHE WANTS TO SAY , BUT HAS DIFFICULTY GETTING IT OUT AT TIMES. HER VITALS TODAY ARE 98.6-94-20-99 %-101/50. SHE IS HEMODYNAMICALLY STABLE TODAY. PATIENT HAD A BRAIN MRI/MRA, CAROTID DOPPLER, AND AN ECHO YESTERDAY. NO ACUTE PROCESS NOTED. TODAY, WE WILL START ECOTRIN 81MG PO DAILY AND ROSUVASTATIN 20MG PO HS. OTHERWISE, WE WILL CONTINUE WITH CURRENT PLAN OF CARE. WE PLAN TO FOLLOW UP WITH AM LABS AND CONTINUE TO MONTIOR PATIENT. - Past Medical Family Social History Past Med/Fam/Surg Hx: No changes since H&P Allergies: Allergies Penicillins Allergy (Verified 12/12/17 09:01) - Review of Systems ROS: No change since H&P - Vital Signs and I&O's Vital Signs: Temperature 98.0 F Pulse Rate [Right Brachial] 60 Pulse Rate 74 Respiratory Rate 20 Blood Pressure [Left Arm] 102/50 Blood Pressure [Right Arm] 101/66 Blood Pressure 123/66 O2 Sat by Pulse Oximetry 96 Intake and Output: Intake & Output 12/13/17 12/14/17 12/15/17 12/16/17 11:59 11:59 11:59 11:59 Intake Total 100 1040 600 Output Total 500 Balance 100 540 600 - Physical Exam Oriented: Normal Eyes: Normal Ear: Normal Nose: Normal Throat: Normal Respiratory: Normal Cardiovascular: Normal : Normal Auscultation: Bowel Sounds: Normal Palpation: Normal Tenderness: Normal Skin: Normal Musculoskeletal: Normal Psychiatric: Normal Mood Description: Calm Affect: Normal Speech Pattern: Clear, Delayed - Laboratory and Diagnostics Result Diagrams: 12/15/17 04:34 12/15/17 04:34 Labs: Laboratory WBC 6.8 X10^3/uL (3.6-10.0) 12/15/17 04:34 RBC 3.69 X10^6/uL (3.5-5.4) 12/15/17 04:34 Hgb 12.2 g/dL (12.0-16.0) 12/15/17 04:34 Hct 35.9 % (36.0-47.0) L 12/15/17 04:34 MCV 97.3 fL (80.0-100.0) 12/15/17 04:34 MCH 33.0 pg (27.0-34.0) 12/15/17 04:34 MCHC 33.9 g/dL (33.0-35.0) 12/15/17 04:34 RDW 13.4 % (11.6-16.5) 12/15/17 04:34 Plt Count 154 X10^3/uL (150.0-450.0) 12/15/17 04:34 MPV 8.3 fL (7.4-11.0) 12/15/17 04:34 Neut % (Auto) 61.9 % (42.0-75.0) 12/15/17 04:34 Lymph % (Auto) 29.1 % (21.0-51.0) 12/15/17 04:34 [place] % (Auto) 7.3 % (0.0-13.0) 12/15/17 04:34 Eos % (Auto) 1.5 % (0.9-2.9) 12/15/17 04:34 Baso % (Auto) 0.2 % (0.2-1.0) 12/15/17 04:34 Neut # (Auto) 4.2 x10^3/uL (2.2-4.8) 12/15/17 04:34 Lymph # (Auto) 2.0 X10^3/uL (1.3-2.9) 12/15/17 04:34 [place] # (Auto) 0.5 x10^3/uL (0.3-0.8) 12/15/17 04:34 Eos # (Auto) 0.1 x10^3/uL (0.0-0.2) 12/15/17 04:34 Baso # (Auto) 0.0 X10^3/uL (0.0-0.1) 12/15/17 04:34 Absolute Nucleated RBC 0.1 /100WBC 12/15/17 04:34 Sodium 144 mmol/L (136-145) 12/15/17 04:34 Corrected Sodium TNP 12/15/17 04:34 Potassium 3.9 mmol/L (3.5-5.1) 12/15/17 04:34 Chloride 110 mmol/L (98-107) H 12/15/17 04:34 Carbon Dioxide 22.2 mmol/L (21-32) 12/15/17 04:34 BUN 6 mg/dL (7-18) L 12/15/17 04:34 Creatinine 1.40 mg/dL (0.55-1.02) H 12/15/17 04:34 Est GFR (MDRD) Af Amer 48 (>60) L 12/15/17 04:34 Est GFR (MDRD) Non-Af 40 (>60) L 12/15/17 04:34 Glucose 104 mg/dL (65-99) H 12/15/17 04:34 Calcium 8.7 mg/dL (8.5-10.1) 12/15/17 04:34 Corrected Calcium 9.3 mg/dL (8.5-10.1) 12/15/17 04:34 Total Bilirubin 0.50 mg/dL (0.2-1.0) 12/15/17 04:34 AST 48 Units/L (15-37) H 12/15/17 04:34 ALT 44 Units/L (12-78) 12/15/17 04:34 Alkaline Phosphatase 63 Units/L (46-116) 12/15/17 04:34 Creatine Kinase 291 Units/L (26-192) H 12/14/17 00:30 CK-MB (CK-2) 3.1 ng/mL (0-4.0) 12/14/17 00:30 CK/CKMB % Calc 1.1 % (<4) 12/14/17 00:30 Troponin I < 0.02 ng/mL (0-1.5) 12/14/17 00:30 C-Reactive Protein 0.80 mg/L (0-3.0) 12/13/17 23:16 Total Protein 6.7 g/dL (6.4-8.2) 12/15/17 04:34 Albumin 3.2 g/dL (3.4-5.0) L 12/15/17 04:34 Globulin 3.5 g/dL (2.5-4.5) 12/15/17 04:34 Albumin/Globulin Ratio 0.9 Ratio (1.1-2.1) L 12/15/17 04:34 Specimen Type Clean catch urine 12/14/17 04:12 Urine Color Yellow (YELLOW) 12/14/17 04:12 Urine Appearance Clear (CLEAR) 12/14/17 04:12 Urine pH 5.0 (5.0 - 8.0) 12/14/17 04:12 Ur Specific [place] 1.020 (1.000-1.030) 12/14/17 04:12 Urine Protein 1+ (NEGATIVE) 12/14/17 04:12 Urine Glucose (UA) Negative (NEGATIVE) 12/14/17 04:12 Urine Ketones 3+ (NEGATIVE) 12/14/17 04:12 Urine Occult Blood 2+ (NEGATIVE) 12/14/17 04:12 Urine Nitrite Negative (NEGATIVE) 12/14/17 04:12 Urine Bilirubin Negative (NEGATIVE) 12/14/17 04:12 Urine Urobilinogen Normal (NORMAL) 12/14/17 04:12 Ur Leukocyte Esterase Negative (NEGATIVE) 12/14/17 04:12 Urine RBC 0-2 /HPF (NONE SEEN) 12/14/17 04:12 Urine WBC 0-2 /HPF (NONE SEEN) 12/14/17 04:12 Ur Squamous Epith Cells Few /HPF (NEGATIVE) 12/14/17 04:12 Urine Bacteria Negative /HPF (NEGATIVE) 12/14/17 04:12 Urine Mucus Few /HPF (NEGATIVE) 12/14/17 04:12 Ur Culture Indicated? No/not indicated 12/14/17 04:12
[2017-12-15] MEDS ORDERED: CRESTOR TAB 10 MG PO SCH (22:00)
[2017-12-16] MEDS: NS 1000 ML 1,000 ML IV SCH (04:25)
[2017-12-16 05:25] LABS: BASOPHILS % (AUTO) 0.2 % (0.2-1.0); EOSINOPHILS # (AUTO) 0.2 x10^3/uL (0.0-0.2); EOSINOPHILS % (AUTO) 3.1 % (0.9-2.9); HEMATOCRIT 32.7 % (36.0-47.0); HEMOGLOBIN 11.3 g/dL (12.0-16.0); LYMPHOCYTES # (AUTO) 1.4 X10^3/uL (1.3-2.9); LYMPHOCYTES % (AUTO) 23.5 % (21.0-51.0); MEAN CORPUSCULAR HEMOGLOBIN 33.5 pg (27.0-34.0); MEAN CORPUSCULAR HGB CONC 34.7 g/dL (33.0-35.0); MEAN CORPUSCULAR VOLUME 96.5 fL (80.0-100.0); MEAN PLATELET VOLUME 8.3 fL (7.4-11.0); MONOCYTES # (AUTO) 0.5 x10^3/uL (0.3-0.8); MONOCYTES % (AUTO) 8.1 % (0.0-13.0); NEUTROPHILS # (AUTO) 3.8 x10^3/uL (2.2-4.8); NEUTROPHILS % (AUTO) 65.1 % (42.0-75.0); PLATELET COUNT 129 X10^3/uL (150.0-450.0); RED BLOOD COUNT 3.39 X10^6/uL (3.5-5.4); RED CELL DISTRIBUTION WIDTH 13.2 % (11.6-16.5); WHITE BLOOD COUNT 5.8 X10^3/uL (3.6-10.0)
[2017-12-16 05:34] LABS: ALANINE AMINOTRANSFERASE 42 Units/L (12-78); ALBUMIN 2.8 g/dL (3.4-5.0); ALKALINE PHOSPHATASE 52 Units/L (46-116); ASPARTATE AMINO TRANSFERASE 65 Units/L (15-37); BLOOD UREA NITROGEN 7 mg/dL (7-18); CALCIUM 8.6 mg/dL (8.5-10.1); CARBON DIOXIDE 21.4 mmol/L (21-32); CHLORIDE 112 mmol/L (98-107); COR CA(FOR HYPOALB) 9.6 mg/dL (8.5-10.1); CREATININE 1.25 mg/dL (0.55-1.02); SODIUM 143 mmol/L (136-145); TOTAL PROTEIN 5.9 g/dL (6.4-8.2); eGFR BLACK RACES 54 (>60); eGFR NON BLACK RACES 45 (>60)
[2017-12-16] MEDS ORDERED: LEXAPRO ONE (08:41)
[2017-12-16] MEDS: CIPRO IV 400 MG PREMIX* 400 MG/200 ML IV.SOLN. IV SCH (08:50)
[2017-12-16] MEDS: SYNTHROID 125 mcg TAB PO SCH (08:50)
[2017-12-16] MEDS: LEXAPRO PO SCH (08:51)
[2017-12-16] MEDS: XARELTO PO SCH (08:51)
[2017-12-16] MEDS: VITAMIN D3 PO SCH (08:51)
[2017-12-16] MEDS ORDERED: ASPIRIN EC 81 MG PO SCH (09:00)
[2017-12-16 10:49] VITALS: BP 111/53
== END 2017-12-16 13:20 | disposition home or self-care (01) ==
LOC: ER 22:19 → MED/SURG 12-14 00:31
PROVIDERS: ADMIT Internal Medicine; ATTEND Internal Medicine
DX: R55 Syncope and collapse (principal); E03.8 Other specified hypothyroidism; R94.31 Abnormal electrocardiogram [ECG] [EKG]; R42 Dizziness and giddiness; H53.8 Other visual disturbances; R07.89 Other chest pain; E78.2 Mixed hyperlipidemia; F41.8 Other specified anxiety disorders; Z93.1 Gastrostomy status; D72.828 Other elevated white blood cell count; Z79.899 Other long term (current) drug therapy; R94.4 Abnormal results of kidney function studies; R73.09 Other abnormal glucose; R26.89 Other abnormalities of gait and mobility
CPT/HCPCS: 36415; 70450; 70544; 70551; 71045; 80053; 81001; 82550; 82553; 84484; 85025; 86140; 93005; 93306; 93880; 96365; 96374; 97535; 99217; 99284; A4216; A4222; G8987; G8988; G8989; G0378; J0744; J2270

== ENCOUNTER 2018-11-15 11:27 | Observation (INO) ==
[2018-11-15] MEDS ORDERED: NS 1000 ML 1,000 ML ONE (13:43)
[2018-11-15] MEDS: NS 1000 ML 1,000 ML IV SCH (14:06)
[2018-11-15 14:27] LABS: BASOPHILS % (AUTO) 0.3 % (0.2-1.0); EOSINOPHILS # (AUTO) 0.1 x10^3/uL (0.0-0.2); EOSINOPHILS % (AUTO) 2.1 % (0.9-2.9); HEMATOCRIT 30.8 % (36.0-47.0); HEMOGLOBIN 9.8 g/dL (12.0-16.0); LYMPHOCYTES # (AUTO) 1.2 X10^3/uL (1.3-2.9); LYMPHOCYTES % (AUTO) 25.6 % (21.0-51.0); MEAN CORPUSCULAR HGB CONC 31.7 g/dL (33.0-35.0); MEAN CORPUSCULAR VOLUME 75.9 fL (80.0-100.0); MEAN PLATELET VOLUME 8.2 fL (7.4-11.0); MONOCYTES # (AUTO) 0.5 x10^3/uL (0.3-0.8); MONOCYTES % (AUTO) 9.6 % (0.0-13.0); NEUTROPHILS % (AUTO) 62.4 % (42.0-75.0); PLATELET COUNT 227 X10^3/uL (150.0-450.0); RED BLOOD COUNT 4.06 X10^6/uL (3.5-5.4); RED CELL DISTRIBUTION WIDTH 17.3 % (11.6-16.5); WHITE BLOOD COUNT 4.9 X10^3/uL (3.6-10.0)
[2018-11-15 14:41] VITALS: BMI 21.1
[2018-11-15 14:46] LABS: ALANINE AMINOTRANSFERASE 28 Units/L (12-78); ALBUMIN 3.3 g/dL (3.4-5.0); ALKALINE PHOSPHATASE 69 Units/L (46-116); ASPARTATE AMINO TRANSFERASE 24 Units/L (15-37); BLOOD UREA NITROGEN 15 mg/dL (7-18); CALCIUM 9.2 mg/dL (8.5-10.1); CARBON DIOXIDE 21.7 mmol/L (21-32); CHLORIDE 105 mmol/L (98-107); COR CA(FOR HYPOALB) 9.8 mg/dL (8.5-10.1); CREATININE 1.31 mg/dL (0.55-1.02); SODIUM 139 mmol/L (136-145); TOTAL PROTEIN 7.3 g/dL (6.4-8.2); eGFR NON BLACK RACES 43 (>60)
[2018-11-15 14:57] LABS: ANISOCYTOSIS SLIGHT; HYPOCHROMASIA 1+; PLATELET MORPHOLOGY COMMENT NORMAL (NORMAL)
--- NOTE | 2018-11-15 16:01 | RAD ---
HISTORY: Colon cancer Study: AP portable chest Comparison: 12/13/2017 Findings: Mild patchy infiltrate is noted in the left lung base with probable small amount of pleural fluid. Mild cardiomegaly is noted. A Port-A-Cath is present on the right the tip is at the cavoatrial junction. A smooth impression is noted on the right side of the trachea with slight tracheal deviation to the left. Mild osteopenia is present. IMPRESSION: 1. Findings suggesting left lower lobe atelectatic change/infiltrate probable effusion. 2. Mild cardiomegaly. 3. Smooth impression on the right side of the trachea suggesting the possibility of thyroid enlargement. Thyroid ultrasound is recommended. Reported By:
[2018-11-15 16:29] LABS: BILIRUBIN,URINE NEGATIVE (NEGATIVE); BLOOD/HEMOGLOBIN,URINE NEGATIVE (NEGATIVE); GLUCOSE, URINE NEGATIVE (NEGATIVE); KETONES,URINE NEGATIVE (NEGATIVE); LEUKOCYTE ESTERASE ,URINE NEGATIVE (NEGATIVE); NITRITES,URINE NEGATIVE (NEGATIVE); PROTEIN,URINE 1+ (NEGATIVE); UROBILINOGEN,URINE NORMAL (NORMAL)
[2018-11-15 16:40] LABS: APPEARANCE,URINE CLEAR (CLEAR); BACTERIA,URINE NEGATIVE /HPF (NEGATIVE); COLOR,URINE PALE YELLOW (YELLOW); RBC,URINE NONE SEEN /HPF (NONE SEEN); SQUAMOUS EPITHELIAL CELL,UR RARE /HPF (NEGATIVE)
--- NOTE | 2018-11-15 17:50 | MRI ---
HISTORY: Stroke-like symptoms, dizziness, blurred vision Study: MRI Brain without contrast Comparison: 12/14/2017 Technique: Multiplanar multi-sequence MRI of the brain was performed with standard departmental protocol Findings: The brain parenchyma is within normal limits for age with minimal T2 and FLAIR periventricular hyperintense signal foci likely on the basis of chronic microvascular ischemic changes. No evidence of mass or intracranial hemorrhage. No restricted diffusion to suggest recent infarction.No extra-axial fluid collections are observed. The ventricular system appears symmetric and nondilated. The cerebellopontine angles are normal in appearance without brainstem mass or evidence for acoustic neuroma. The flow voids on T2 weighted imaging appear normal. The midline structures appear unremarkable. The soft tissues are intact. The visualized paranasal sinuses and mastoid air cells are clear. The orbits and globes are unremarkable. IMPRESSION: 1. Stable exam without acute intracranial abnormality. Reported By:
--- NOTE | 2018-11-15 17:50 | MRI ---
History: Stroke Exam: MRA brain Comparison: None Technique: 3D [id number] images were obtained of the intracranial vessels. The raw data was reviewed and 3D reconstructions were performed. Findings: Both internal carotid arteries are patent normal caliber. The carotid siphons are unremarkable with a normal bifurcation intracranially. There is good tapering of the peripheral MCA and KADI vessels. Both vertebral arteries are patent. The basilar artery is unremarkable . There is a circulation involving the left posterior cerebral artery which is a normal variant. The right posterior cerebral artery is normal caliber and tapers distally . There is no proximal filling defect or vessel cut off . There is no vascular malformation or aneurysm seen. IMPRESSION: Unremarkable MRA of the brain. Reported By:
--- NOTE | 2018-11-15 19:10 | VAS ---
HISTORY: Weakness, dizziness, unsteady gait Study: Carotid ultrasound Comparison: None Technique: Multiple valladares scale and color flow Doppler images of the right and left carotid arterial system were obtained. The vertebral arterial system was evaluated as well. Findings: The peak systolic velocity of the right ICA is 65 cm/sec. The peak systolic velocity of the left ICA is 60 cm/sec. The ICA/CCA ratio on the right is 1.0. The ICA/CCA ratio on the left is 0.8. Bilateral antegrade vertebral flow was noted. Bilateral thyroid nodules are noted and may be further evaluated with dedicated thyroid ultrasound if not already performed. IMPRESSION: No hemodynamically significant stenosis is appreciated. Bilateral thyroid nodules which may be further evaluated with dedicated thyroid ultrasound if not already performed. Reported By:
[2018-11-15] MEDS ORDERED: XANAX PO ONE (20:00)
[2018-11-15] MEDS ORDERED: TUSSIONEX PENNKINETIC SUSP PO PRN (21:31)
[2018-11-15] MEDS ORDERED: LEVAQUIN PREMIX IV 500 MG 500 MG/100 ML BAG IV SCH (22:00)
[2018-11-15] MEDS ORDERED: SALINE 3% 15 ML NEB TX NEB ONE (22:15)
[2018-11-16] MEDS: NS 1000 ML 1,000 ML IV SCH ×4 (03:07→22:56)
--- NOTE | 2018-11-16 06:09 | RAD ---
HISTORY: Shortness of breath Study: Chest AP portable Comparison: 11/15/2018 Findings: There is a port present on the right. The heart is enlarged. No congestive heart failure is noted. The girish are normal. The lungs are well inflated and free of acute alveolar infiltrates. No pleural effusions are identified. The bony thorax is unremarkable. IMPRESSION: Mild cardiomegaly without congestive heart failure No definite acute infiltrates Reported By:
[2018-11-16 06:38] LABS: BASOPHILS % (AUTO) 0.5 % (0.2-1.0); EOSINOPHILS # (AUTO) 0.1 x10^3/uL (0.0-0.2); EOSINOPHILS % (AUTO) 3.3 % (0.9-2.9); HEMATOCRIT 26.7 % (36.0-47.0); HEMOGLOBIN 8.6 g/dL (12.0-16.0); LYMPHOCYTES # (AUTO) 1.2 X10^3/uL (1.3-2.9); LYMPHOCYTES % (AUTO) 30.3 % (21.0-51.0); MEAN CORPUSCULAR HGB CONC 32.1 g/dL (33.0-35.0); MEAN CORPUSCULAR VOLUME 74.7 fL (80.0-100.0); MEAN PLATELET VOLUME 8.3 fL (7.4-11.0); MONOCYTES # (AUTO) 0.3 x10^3/uL (0.3-0.8); MONOCYTES % (AUTO) 8.8 % (0.0-13.0); NEUTROPHILS # (AUTO) 2.2 x10^3/uL (2.2-4.8); NEUTROPHILS % (AUTO) 57.1 % (42.0-75.0); PLATELET COUNT 175 X10^3/uL (150.0-450.0); RED BLOOD COUNT 3.57 X10^6/uL (3.5-5.4); RED CELL DISTRIBUTION WIDTH 17.4 % (11.6-16.5); WHITE BLOOD COUNT 3.8 X10^3/uL (3.6-10.0)
[2018-11-16 06:42] LABS: ALBUMIN 2.7 g/dL (3.4-5.0); CALCIUM 8.5 mg/dL (8.5-10.1); CARBON DIOXIDE 23.7 mmol/L (21-32); COR CA(FOR HYPOALB) 9.5 mg/dL (8.5-10.1); CREATININE 1.2 mg/dL (0.55-1.02); TOTAL PROTEIN 6.2 g/dL (6.4-8.2)
[2018-11-16 06:44] LABS: PLATELET MORPHOLOGY COMMENT NORMAL (NORMAL)
[2018-11-16] MEDS: ROBITUSSIN DM PO SCH ×4 (08:46→20:19)
[2018-11-16] MEDS: CULTURELLE PRO-WELL PROBIOTIC CAP PO SCH (08:46)
[2018-11-16] MEDS ORDERED: XANAX PO PRN (08:55)
[2018-11-16] MEDS ORDERED: ZOFRAN TAB 4 MG PO PRN (08:55)
[2018-11-16] MEDS ORDERED: DUONEB 0.5 MG/3 MG NEB PRN (09:00)
[2018-11-16] MEDS ORDERED: LEXAPRO ONE (09:13)
--- NOTE | 2018-11-16 09:17 | US ---
HISTORY: Enlarged thyroid Study: Ultrasound of the thyroid Comparison: Carotid Doppler ultrasound done 11/15/2018. Technique: Grayscale and color Doppler images of the thyroid are provided. Findings: Neither lobe is enlarged. The right lobe measures 2.3 x 3.6 x 4.2 cm. Left lobe measures 2.4 x 3.1 x 4.3 cm. Isthmus measures 4.6 mm in thickness. The thyroid gland is multi in nodular with multiple cystic and solid nodules bilaterally. The largest nodule is present on the right side inferiorly and measures up to about 1.7 cm in diameter. This nodule is heterogeneous but is predominantly isoechoic and solid the nodule is wider than tall with smooth margins. No perceivable calcifications are seen. This nodule represents a TI-RADS 3 nodule. Due to the size of the nodule being greater than 1.5 cm, current recommendations require ultrasound follow-up in 12 months. There is increased color Doppler flow bilaterally. This may or may not correlate with increased thyroid function. IMPRESSION: No evidence of thyroid enlargement. TI-RADS 3 nodule present involving the right lower thyroid pole. Twelve month ultrasound follow-up is suggested. Reported By:
[2018-11-16] MEDS: ASPIRIN EC 81 MG PO SCH (09:22)
[2018-11-16] MEDS: LEXAPRO PO SCH (09:23)
[2018-11-16] MEDS: VITAMIN D3 PO SCH (09:23)
[2018-11-16] MEDS: XARELTO PO SCH (09:23)
[2018-11-16] MEDS: SYNTHROID 150 mcg TAB PO SCH (09:23)
[2018-11-16] MEDS ORDERED: LEVAQUIN PREMIX IV 250 MG 250 MG/50 ML BAG IV SCH (21:00)
[2018-11-16] MEDS ORDERED: CRESTOR TAB 10 MG PO SCH (21:00)
[2018-11-17] MEDS: NS 1000 ML 1,000 ML IV SCH (04:55)
[2018-11-17 05:20] LABS: ALANINE AMINOTRANSFERASE 21 Units/L (12-78); ALBUMIN 2.6 g/dL (3.4-5.0); ALKALINE PHOSPHATASE 56 Units/L (46-116); ASPARTATE AMINO TRANSFERASE 18 Units/L (15-37); BLOOD UREA NITROGEN 11 mg/dL (7-18); CALCIUM 8.4 mg/dL (8.5-10.1); CARBON DIOXIDE 24.1 mmol/L (21-32); CHLORIDE 109 mmol/L (98-107); COR CA(FOR HYPOALB) 9.5 mg/dL (8.5-10.1); CREATININE 1.09 mg/dL (0.55-1.02); MAGNESIUM 1.1 mg/dL (1.7-2.9); SODIUM 142 mmol/L (136-145); TOTAL PROTEIN 5.9 g/dL (6.4-8.2); eGFR NON BLACK RACES 53 (>60)
[2018-11-17 05:26] LABS: BASOPHILS % (AUTO) 0.3 % (0.2-1.0); EOSINOPHILS # (AUTO) 0.1 x10^3/uL (0.0-0.2); EOSINOPHILS % (AUTO) 3.3 % (0.9-2.9); HEMATOCRIT 25.8 % (36.0-47.0); HEMOGLOBIN 8.2 g/dL (12.0-16.0); LYMPHOCYTES # (AUTO) 1.3 X10^3/uL (1.3-2.9); LYMPHOCYTES % (AUTO) 30.4 % (21.0-51.0); MEAN CORPUSCULAR HEMOGLOBIN 24.3 pg (27.0-34.0); MEAN CORPUSCULAR VOLUME 76.1 fL (80.0-100.0); MEAN PLATELET VOLUME 8.1 fL (7.4-11.0); MONOCYTES # (AUTO) 0.4 x10^3/uL (0.3-0.8); NEUTROPHILS # (AUTO) 2.4 x10^3/uL (2.2-4.8); PLATELET COUNT 192 X10^3/uL (150.0-450.0); RED BLOOD COUNT 3.39 X10^6/uL (3.5-5.4); WHITE BLOOD COUNT 4.2 X10^3/uL (3.6-10.0)
[2018-11-17] MEDS ORDERED: K-RIDER 10 MEQ/NS 100 ML 10 MEQ/100 ML BAG IV PRN (05:37)
[2018-11-17] MEDS ORDERED: POTASSIUM CHLORIDE LIQ 20 MEQ UDC PO PRN (05:37)
[2018-11-17] MEDS ORDERED: POTASSIUM CHL 40 MEQ/NS 0.45% 500 ML IV PRN (05:37)
[2018-11-17] MEDS ORDERED: K-DUR TAB 20 MEQ PO PRN (05:37)
[2018-11-17] MEDS ORDERED: KLOR-CON PO PRN (05:37)
[2018-11-17] MEDS ORDERED: POTASSIUM CHL 60 MEQ/NS 0.45% 500 ML IV PRN (05:37)
[2018-11-17] MEDS ORDERED: MICRO K EXTEN CAP 10 MEQ PO PRN (05:37)
[2018-11-17] MEDS ORDERED: MAGNESIUM SULFATE 1 GRAM/100 mL PREMIX 1 G/100 ML BAG IV ONE (05:43)
[2018-11-17] MEDS ORDERED: MICRO K EXTEN CAP 10 MEQ PO ONE (05:44)
[2018-11-17 05:57] LABS: ANISOCYTOSIS SLIGHT; HYPOCHROMASIA SLIGHT; PLATELET MORPHOLOGY COMMENT NORMAL (NORMAL)
[2018-11-17] MEDS: MAGNESIUM SULFATE 1 GRAM/100 mL PREMIX 1 GM/100 ML BAG IV PRN ×3 (06:25→10:28)
--- NOTE | 2018-11-17 07:39 | RAD ---
Examination: Portable AP chest History: SOB Comparison 11/16/2018 Findings: Stable cardiac enlargement with no acute pulmonary, or pleural lesion. Right subclavian injection port terminates near the cavoatrial junction. Impression: Continued cardiac enlargement. No interval change or new abnormality demonstrated. Reported By:
[2018-11-17] MEDS ORDERED: LEXAPRO ONE (08:10)
[2018-11-17] MEDS: ROBITUSSIN DM PO SCH (08:26)
[2018-11-17] MEDS: CULTURELLE PRO-WELL PROBIOTIC CAP PO SCH (08:27)
[2018-11-17] MEDS: XARELTO PO SCH (08:27)
[2018-11-17] MEDS: VITAMIN D3 PO SCH (08:27)
[2018-11-17] MEDS: SYNTHROID 150 mcg TAB PO SCH (08:28)
[2018-11-17] MEDS: LEXAPRO PO SCH (08:28)
[2018-11-17] MEDS: ASPIRIN EC 81 MG PO SCH (08:30)
[2018-11-17 13:37] VITALS: BP 116/59
[2018-11-19 06:11] LABS: HEPATITIS B CORE IGM Negative (Negative); HEPATITIS B SURFACE ANTIGEN Negative (Negative)
[2018-11-19 06:12] LABS: HEPATITIS A ANTIBODY IGM Positive (Negative)
--- NOTE | 2018-11-29 08:43 | DR.UPDATE ---
H&P Update History and Physical Update: History and Physical reviewed and patient examined. Changes noted: Yes with the following: WAS SEEN IN THE OFFICE FOR A FOLLOW-UP VISIT DUE TO INCREASED DROWSINESS, WEAKNESS, DIZZINESS, AND BLURRED VISION. SPOUSE REPORTS THAT ELI WAS RECENTLY STARTED ON LEXAPRO AND HE FEELS LIKE SHE IS SLEEPING TOO MUCH SINCE STARTING IT. HE REPORTS THAT SHE SEEMS DISORIENTED AT TIMES. SHE WAS ADMITTED FOR FURTHER EVALUATION AND TREATMENT. ON ADMISSION, WE PLANNED TO OBTAIN LABS, CHEST XRAY, BRAIN MRI WITH MRA, A CAROTID ARTERY ULTRASOUND, AND AN ECHO. WE WILL START HER ON NORMAL SALINE AT 75ML/HR AND RESUME HOME MEDICATIONS. A H&P WAS COMPLETED PRIOR TO ADMISSION.
--- NOTE | 2018-11-29 09:22 | PCM.PROG ---
Progress Note - Progress Note for Day of Date of Exam: 11/16/18 - Subjective Subjective: WAS ADMITTED FOR STROKE LIKE SYMPTOMS, DIZZINESS, AND BLURRED VISION. ON ADMISSION, A CHEST XRAY WAS OBTAINED WHICH ALSO REVEALED A LEFT LOWER LOBE INFILTRATE AND A SMOOTH IMPRESSION ON THE RIGHT SIDE OF THE TRACHEA SUGGESTING THE POSSIBILITY OF THYROID ENLARGEMENT. TODAY, SHE IS ALERT AND ORIENTED, LYING IN BED ON MORNING ROUNDS. SHE CONTINUES WITH COMPLAINTS OF WEAKNESS. SHE EXPRESSES THIS MORNING THAT HER MIX CHEMIST THOUGHT SHE MAY HAVE HEPATITIS A. WE WILL OBTAIN RECORDS TO CONFIRM THIS. ON EXAMINATION, HEART IS REGULAR IN RATE AND RHYTHM. BILATERAL LUNGS ARE NOTED WITH DIMINISHED LUNG SOUNDS THROUGHOUT. ABDOMEN IS ROUND, SOFT, AND NON-TENDER WITH NORMAL BOWEL S OUNDS NOTED IN ALL QUADRANTS. HER VITALS THIS MORNING ARE 98.3-58-18-97%-95/55. LABS WERE OBTAINED. ABNORMAL LAB VALUES INCLUDE THE FOLLOWING: HGB 8.6, HCT 26.7, CHLORIDE 108, CREATININE 1.20, GLUCOSE 117, TOTAL PROTEIN 6.2, ALBUMIN 2.7. BLOOD CULTURES PENDING. BRAIN MRI/MRA WAS OBTAINED ON ADMISSION AND REVEALED: Unremarkable MRI/MRA of the brain. CAROTID ARTERY US WAS OBTAINED AND REVEALED: No hemodynamically significant stenosis is appreciated. Bilateral thyroid nodules which may be further evaluated with dedicated thyroid ultrasound if not already performed. ECHO REVEALED AN EJECTION FRACTION OF 54%, MILD TR, THICK POST MV WITH TRACE MR. A THYROID ULTRASOUND WAS OBTAINED AND REVEALED: TI-RADS 3 nodule present involving the right lower thyroid pole. Twelve month ultrasound follow-up is suggested. REPEAT CHEST XRAY REVEALED: Mild cardiomegaly without congestive heart failure. No definite acute infiltrates. SHE IS CURRENTLY RECEIVING IV FLUIDS, IV ANTIBIOTICS, RESPIRATORY TREATMENTS, AND HER HOME MEDICATIONS WERE RESUMED. WE WILL CONTINUE WITH CURRENT PLAN OF CARE TODAY. OTHERWISE, WE WILL FOLLOW UP WITH AM LABS AND CONTINUE TO MONITOR. - Past Medical Family Social History Past Med/Fam/Surg Hx: No changes since H&P Allergies: Allergies Penicillins Allergy (Verified 12/12/17 09:01) - Review of Systems ROS: No change since H&P - Vital Signs and I&O's Vital Signs: Temperature 98.3 F Pulse Rate [Right Brachial] 68 Pulse Rate 87 Respiratory Rate 18 Blood Pressure [Left Arm] 102/51 Blood Pressure [Right Arm] 116/59 Blood Pressure 111/53 O2 Sat by Pulse Oximetry 96 - Physical Exam Oriented: Normal Eyes: Normal Ear: Normal Nose: Normal Throat: Normal Respiratory: Generalized, Diminished Cardiovascular: Normal. negative: S3, S4, Murmur : Normal Auscultation: Bowel Sounds: Normal Palpation: Normal Tenderness: Normal Skin: Normal Musculoskeletal: Normal Psychiatric: Normal Mood Description: Calm Affect: Normal Speech Pattern: Clear, Appropriate - Laboratory and Diagnostics Result Diagrams: 11/17/18 04:13 11/17/18 04:13 Labs: 11/15/18 21:49 Blood Blood Culture - Final 11/15/18 21:47 Blood Blood Culture - Final Laboratory WBC 4.2 X10^3/uL (3.6-10.0) 11/17/18 04:13 RBC 3.39 X10^6/uL (3.5-5.4) L 11/17/18 04:13 Hgb 8.2 g/dL (12.0-16.0) L 11/17/18 04:13 Hct 25.8 % (36.0-47.0) L 11/17/18 04:13 MCV 76.1 fL (80.0-100.0) L 11/17/18 04:13 MCH 24.3 pg (27.0-34.0) L 11/17/18 04:13 MCHC 32.0 g/dL (33.0-35.0) L 11/17/18 04:13 RDW 17.0 % (11.6-16.5) H 11/17/18 04:13 Plt Count 192 X10^3/uL (150.0-450.0) 11/17/18 04:13 Plt Count Comment Adequate (ADEQUATE) 11/17/18 04:13 MPV 8.1 fL (7.4-11.0) 11/17/18 04:13 Neut % (Auto) 57.0 % (42.0-75.0) 11/17/18 04:13 Lymph % (Auto) 30.4 % (21.0-51.0) 11/17/18 04:13 [place] % (Auto) 9.0 % (0.0-13.0) 11/17/18 04:13 Eos % (Auto) 3.3 % (0.9-2.9) H 11/17/18 04:13 Baso % (Auto) 0.3 % (0.2-1.0) 11/17/18 04:13 Neut # (Auto) 2.4 x10^3/uL (2.2-4.8) 11/17/18 04:13 Lymph # (Auto) 1.3 X10^3/uL (1.3-2.9) 11/17/18 04:13 [place] # (Auto) 0.4 x10^3/uL (0.3-0.8) 11/17/18 04:13 Eos # (Auto) 0.1 x10^3/uL (0.0-0.2) 11/17/18 04:13 Baso # (Auto) 0.0 X10^3/uL (0.0-0.1) 11/17/18 04:13 Absolute Nucleated RBC 0.2 /100WBC 11/17/18 04:13 Plt Morphology Comment Normal (NORMAL) 11/17/18 04:13 RBC Morphology Abnormal (NORMAL) A 11/17/18 04:13 Hypochromasia Slight A 11/17/18 04:13 Anisocytosis Slight A 11/17/18 04:13 Sodium 142 mmol/L (136-145) 11/17/18 04:13 Corrected Sodium TNP 11/17/18 04:13 Potassium 3.6 mmol/L (3.5-5.1) 11/17/18 04:13 Chloride 109 mmol/L (98-107) H 11/17/18 04:13 Carbon Dioxide 24.1 mmol/L (21-32) 11/17/18 04:13 BUN 11 mg/dL (7-18) 11/17/18 04:13 Creatinine 1.09 mg/dL (0.55-1.02) H 11/17/18 04:13 Est GFR (MDRD) Af Amer > 60 (>60) 11/17/18 04:13 Est GFR (MDRD) Non-Af 53 (>60) L 11/17/18 04:13 Glucose 95 mg/dL (65-99) 11/17/18 04:13 POC Glucose (mg/dL) 117 mg/dL (65-99) H 11/16/18 05:20 Calcium 8.4 mg/dL (8.5-10.1) L 11/17/18 04:13 Corrected Calcium 9.5 mg/dL (8.5-10.1) 11/17/18 04:13 Magnesium 1.1 mg/dL (1.7-2.9) L 11/17/18 04:13 Total Bilirubin 0.30 mg/dL (0.2-1.0) 11/17/18 04:13 AST 18 Units/L (15-37) 11/17/18 04:13 ALT 21 Units/L (12-78) 11/17/18 04:13 Alkaline Phosphatase 56 Units/L (46-116) 11/17/18 04:13 Total Protein 5.9 g/dL (6.4-8.2) L 11/17/18 04:13 Albumin 2.6 g/dL (3.4-5.0) L 11/17/18 04:13 Globulin 3.3 g/dL (2.5-4.5) 11/17/18 04:13 Albumin/Globulin Ratio 0.8 Ratio (1.1-2.1) L 11/17/18 04:13 Specimen Type Clean catch urine 11/15/18 15:35 Urine Color Pale yellow (YELLOW) 11/15/18 15:35 Urine Appearance Clear (CLEAR) 11/15/18 15:35 Urine pH 6.0 (5.0 - 8.0) 11/15/18 15:35 Ur Specific [place] 1.020 (1.000-1.030) 11/15/18 15:35 Urine Protein 1+ (NEGATIVE) 11/15/18 15:35 Urine Glucose (UA) Negative (NEGATIVE) 11/15/18 15:35 Urine Ketones Negative (NEGATIVE) 11/15/18 15:35 Urine Occult Blood Negative (NEGATIVE) 11/15/18 15:35 Urine Nitrite Negative (NEGATIVE) 11/15/18 15:35 Urine Bilirubin Negative (NEGATIVE) 11/15/18 15:35 Urine Urobilinogen Normal (NORMAL) 11/15/18 15:35 Ur Leukocyte Esterase Negative (NEGATIVE) 11/15/18 15:35 Urine RBC None seen /HPF (NONE SEEN) 11/15/18 15:35 Urine WBC None seen /HPF (NONE SEEN) 11/15/18 15:35 Ur Squamous Epith Cells Rare /HPF (NEGATIVE) 11/15/18 15:35 Urine Bacteria Negative /HPF (NEGATIVE) 11/15/18 15:35 Ur Culture Indicated? No/not indicated 11/15/18 15:35 Hepatitis A IgM Ab Positive (Negative) H 11/16/18 05:57 Hep Bs Antigen Negative (Negative) 11/16/18 05:57 Hep Bs Ag Confirmation TNP 11/16/18 05:57 Hep B Core IgM Ab Negative (Negative) 11/16/18 05:57 Hepatitis C Ab Index 0.03 IV 11/16/18 05:57 Hepatitis C Interp Negative (Negative) 11/16/18 05:57 Hepatitis Interpret See note 11/16/18 05:57 - Plan (1) Dehydration Status: Acute Plan: NORMAL SALINE AT 75ML/HR, CONTINUE TO MONITOR (2) Generalized weakness Status: Acute Plan: PHYSICAL THERAPY EVALUATION (3) Dizziness Status: Acute (4) Pleural effusion Status: Acute Plan: IV ANTIBIOTICS, RESPIRATORY TREATMENTS, CONTINUE TO MONITOR (5) Thyroid nodule Status: Acute Plan: CONTINUE TO MONITOR
== END 2018-11-17 12:30 | disposition home or self-care (01) ==
LOC: MED/SURG
PROVIDERS: ADMIT Internal Medicine; ATTEND Internal Medicine
DX: R26.89 Other abnormalities of gait and mobility; R42 Dizziness and giddiness; R53.1 Weakness; Z85.038 Personal history of other malignant neoplasm of large intestine; E04.1 Nontoxic single thyroid nodule; H53.8 Other visual disturbances; B15.9 Hepatitis A without hepatic coma; Z86.73 Personal history of transient ischemic attack (TIA), and cerebral infarction without residual deficits; E86.0 Dehydration; R53.83 Other fatigue; J90 Pleural effusion, not elsewhere classified; E03.8 Other specified hypothyroidism; I51.7 Cardiomegaly; Z86.718 Personal history of other venous thrombosis and embolism
CPT/HCPCS: 36415; 70544; 70551; 71010; 71045; 76536; 80053; 80074; 81001; 83735; 85025; 87040; 93306; 93880; 94640; 94760; 96367; 96374; 97162; A4216; A4222; G0378; J1642; J1956; J3475; J7030

== ENCOUNTER 2019-05-29 15:56 | Inpatient (IN) ==
[2019-05-29] MEDS ORDERED: NS 500 ML IV 500 ML IV ONE ×2 (18:03→18:22)
[2019-05-29] MEDS ORDERED: ROCEPHIN VIAL 1 GRAM 1 G in NS 100 ML IV + SPIKE MINIBAG* 100 ML IV SCH (18:22)
[2019-05-29] MEDS: PROTONIX INJ 40 MG VIAL IVP SCH (18:30)
[2019-05-29 18:54] VITALS: BMI 22.1
[2019-05-29] MEDS: NS 1000 ML 1,000 ML IV SCH (18:56)
[2019-05-29 19:04] LABS: BASOPHILS % (AUTO) 0.5 % (0.2-1.0); EOSINOPHILS % (AUTO) 0.3 % (0.9-2.9); HEMATOCRIT 40.5 % (36.0-47.0); HEMOGLOBIN 13.7 g/dL (12.0-16.0); LYMPHOCYTES # (AUTO) 1.5 X10^3/uL (1.3-2.9); LYMPHOCYTES % (AUTO) 28.5 % (21.0-51.0); MEAN CORPUSCULAR HGB CONC 33.8 g/dL (33.0-35.0); MEAN CORPUSCULAR VOLUME 91.9 fL (80.0-100.0); MEAN PLATELET VOLUME 8.3 fL (7.4-11.0); MONOCYTES # (AUTO) 0.4 x10^3/uL (0.3-0.8); MONOCYTES % (AUTO) 7.3 % (0.0-13.0); NEUTROPHILS # (AUTO) 3.4 x10^3/uL (2.2-4.8); NEUTROPHILS % (AUTO) 63.4 % (42.0-75.0); PLATELET COUNT 170 X10^3/uL (150.0-450.0); RED BLOOD COUNT 4.41 X10^6/uL (3.5-5.4); RED CELL DISTRIBUTION WIDTH 26.3 % (11.6-16.5); WHITE BLOOD COUNT 5.4 X10^3/uL (3.6-10.0)
[2019-05-29 19:06] LABS: ALANINE AMINOTRANSFERASE 45 Units/L (12-78); ALBUMIN 3.5 g/dL (3.4-5.0); ALKALINE PHOSPHATASE 68 Units/L (46-116); ASPARTATE AMINO TRANSFERASE 41 Units/L (15-37); BLOOD UREA NITROGEN 28 mg/dL (7-18); CALCIUM 9.2 mg/dL (8.5-10.1); CARBON DIOXIDE 19.1 mmol/L (21-32); CHLORIDE 104 mmol/L (98-107); COR NA(FOR HYPERGLY) 138 mmol/L (136-145); CREATININE 2.67 mg/dL (0.55-1.02); SODIUM 137 mmol/L (136-145); TOTAL PROTEIN 7.5 g/dL (6.4-8.2); eGFR NON BLACK RACES 19 (>60)
[2019-05-29 19:10] LABS: PLATELET MORPHOLOGY COMMENT NORMAL (NORMAL)
[2019-05-29 19:11] LABS: TEAR DROP CELLS PRESENT
[2019-05-29 19:12] LABS: ANISOCYTOSIS 3+
[2019-05-29] MEDS: CRESTOR TAB 10 MG PO SCH (21:05)
[2019-05-29] MEDS: XANAX PO SCH (21:06)
[2019-05-30 00:05] LABS: BILIRUBIN,URINE NEGATIVE (NEGATIVE); BLOOD/HEMOGLOBIN,URINE 2+ (NEGATIVE); GLUCOSE, URINE NEGATIVE (NEGATIVE); KETONES,URINE NEGATIVE (NEGATIVE); LEUKOCYTE ESTERASE ,URINE 2+ (NEGATIVE); NITRITES,URINE NEGATIVE (NEGATIVE); PROTEIN,URINE 2+ (NEGATIVE); UROBILINOGEN,URINE NORMAL (NORMAL)
[2019-05-30 00:09] LABS: APPEARANCE,URINE SLIGHTLY HAZY (CLEAR); COLOR,URINE YELLOW (YELLOW)
[2019-05-30 00:10] LABS: BACTERIA,URINE NEGATIVE /HPF (NEGATIVE); FINE GRANULAR CASTS,URINE MODERATE /LPF (NEGATIVE); HYALINE CASTS, URINE MODERATE /LPF (NEGATIVE); RBC,URINE 0-2 /HPF (0-3); RENAL EPITHELIAL CELLS,URINE MODERATE /HPF (NEGATIVE); SQUAMOUS EPITHELIAL CELL,UR FEW /HPF (NEGATIVE)
[2019-05-30 05:00] LABS: BASOPHILS % (AUTO) 0.5 % (0.2-1.0); EOSINOPHILS # (AUTO) 0.1 x10^3/uL (0.0-0.2); EOSINOPHILS % (AUTO) 1.9 % (0.9-2.9); HEMATOCRIT 36.1 % (36.0-47.0); HEMOGLOBIN 12.3 g/dL (12.0-16.0); LYMPHOCYTES # (AUTO) 1.6 X10^3/uL (1.3-2.9); LYMPHOCYTES % (AUTO) 40.9 % (21.0-51.0); MEAN CORPUSCULAR HEMOGLOBIN 31.2 pg (27.0-34.0); MEAN CORPUSCULAR VOLUME 91.7 fL (80.0-100.0); MEAN PLATELET VOLUME 8.5 fL (7.4-11.0); MONOCYTES # (AUTO) 0.3 x10^3/uL (0.3-0.8); MONOCYTES % (AUTO) 8.6 % (0.0-13.0); NEUTROPHILS # (AUTO) 1.9 x10^3/uL (2.2-4.8); NEUTROPHILS % (AUTO) 48.1 % (42.0-75.0); PLATELET COUNT 149 X10^3/uL (150.0-450.0); RED BLOOD COUNT 3.94 X10^6/uL (3.5-5.4); RED CELL DISTRIBUTION WIDTH 25.8 % (11.6-16.5); WHITE BLOOD COUNT 3.9 X10^3/uL (3.6-10.0)
[2019-05-30 05:13] LABS: ALANINE AMINOTRANSFERASE 37 Units/L (12-78); ALBUMIN 3.1 g/dL (3.4-5.0); ALKALINE PHOSPHATASE 56 Units/L (46-116); ASPARTATE AMINO TRANSFERASE 27 Units/L (15-37); BLOOD UREA NITROGEN 27 mg/dL (7-18); CALCIUM 8.8 mg/dL (8.5-10.1); CARBON DIOXIDE 21.6 mmol/L (21-32); CHLORIDE 106 mmol/L (98-107); COR CA(FOR HYPOALB) 9.5 mg/dL (8.5-10.1); CREATININE 2.14 mg/dL (0.55-1.02); SODIUM 138 mmol/L (136-145); TOTAL PROTEIN 6.7 g/dL (6.4-8.2); eGFR NON BLACK RACES 24 (>60)
[2019-05-30 05:18] LABS: ANISOCYTOSIS SLIGHT; PLATELET MORPHOLOGY COMMENT NORMAL (NORMAL)
--- NOTE | 2019-05-30 06:12 | RAD ---
HISTORY: Shortness of breath Study: Chest AP portable Comparison: 11/17/2018 Findings: There is a port present on the right. The heart is enlarged. No congestive heart failure is noted. No acute alveolar infiltrates or pleural effusions are identified. The bony thorax is unremarkable. IMPRESSION: Continued cardiomegaly without congestive heart failure No infiltrates Reported By:
--- NOTE | 2019-05-30 06:13 | RAD ---
HISTORY: Back pain Study: Lumbar spine AP and lateral Comparison: None Findings: The bones are osteopenic. Lumbar levo scoliosis is present. The alignment is otherwise normal. The vertebral bodies are of average height. No compression fractures are identified. Diffuse disc space narrowing is present at all lumbar levels. The pedicles are intact. The SI joints are normal with the exception of some sclerosis left SI joint. Facet degenerative joint disease is present bilaterally L5-S1 IMPRESSION: Osteopenia Multilevel degenerative disc disease involving all lumbar levels Facet degenerative joint disease L5-S1 bilaterally Levoscoliosis Reported By:
[2019-05-30] MEDS ORDERED: PREVNAR 13 IM ONE (08:02)
[2019-05-30] MEDS ORDERED: LEXAPRO ONE (08:25)
[2019-05-30] MEDS: ROCEPHIN VIAL 1 GRAM 1 G in NS 100 ML IV + SPIKE MINIBAG* 100 ML IV SCH (08:30)
[2019-05-30] MEDS: PROTONIX INJ 40 MG VIAL IVP SCH (08:31)
[2019-05-30] MEDS: LEXAPRO PO SCH (08:31)
[2019-05-30] MEDS: XANAX PO SCH ×2 (08:32→20:30)
[2019-05-30] MEDS: NS 1000 ML 1,000 ML IV SCH ×2 (08:32→22:59)
[2019-05-30] MEDS: ASPIRIN EC 81 MG PO SCH (13:07)
[2019-05-30] MEDS: SYNTHROID 125 mcg TAB PO SCH (16:13)
--- NOTE | 2019-05-30 20:01 | DR.UPDATE ---
H&P Update History and Physical Update: History and Physical reviewed and patient examined. Changes noted: Yes with the following: PRESENTED TO THE OFFICE TODAY WITH COMPLAINTS OF SINUS CONGESTION, FATIGUE, SHORTNESS OF BREATH, BACK PAIN, WEAKNESS, DIZZINESS, AND DECREASED APPETITE. SHE REPORTS A NEAR SYNCOPAL EPISODE. BLOOD PRESSURE WAS NOTED TO BE 78/58 IN THE OFFICE. WE ADMITTED PATIENT FOR FURTHER EVALUATION AND TREATMENT OF HYPOTENSION, NEAR SYNCOPE, AND ACUTE SINUSITIS. ON ADMISSION, WE WILL OBTAIN LABS, URINALYSIS, CHEST XRAY, AND LUMBAR SPINE XRAY. WE WILL START NORMAL SALINE AT 75ML/HR, ROCEPHIN 1G IV DAILY, AND WILL RESUME HER HOME MEDICATIONS. OTHERWISE, WE WILL FOLLOW UP WITH AM LABS AND CONTINUE TO MONITOR. Prescription drug monitoring program results: PDMP was not reviewed
[2019-05-30] MEDS: CRESTOR TAB 10 MG PO SCH (20:30)
[2019-05-30] MEDS: XARELTO PO SCH (20:30)
[2019-05-31 06:02] LABS: BASOPHILS % (AUTO) 0.3 % (0.2-1.0); EOSINOPHILS # (AUTO) 0.1 x10^3/uL (0.0-0.2); EOSINOPHILS % (AUTO) 2.8 % (0.9-2.9); HEMATOCRIT 35.6 % (36.0-47.0); HEMOGLOBIN 12.2 g/dL (12.0-16.0); LYMPHOCYTES # (AUTO) 0.9 X10^3/uL (1.3-2.9); LYMPHOCYTES % (AUTO) 23.5 % (21.0-51.0); MEAN CORPUSCULAR HEMOGLOBIN 31.4 pg (27.0-34.0); MEAN CORPUSCULAR HGB CONC 34.3 g/dL (33.0-35.0); MEAN CORPUSCULAR VOLUME 91.7 fL (80.0-100.0); MEAN PLATELET VOLUME 7.9 fL (7.4-11.0); MONOCYTES # (AUTO) 0.3 x10^3/uL (0.3-0.8); MONOCYTES % (AUTO) 8.9 % (0.0-13.0); NEUTROPHILS # (AUTO) 2.5 x10^3/uL (2.2-4.8); NEUTROPHILS % (AUTO) 64.5 % (42.0-75.0); PLATELET COUNT 131 X10^3/uL (150.0-450.0); RED BLOOD COUNT 3.88 X10^6/uL (3.5-5.4); RED CELL DISTRIBUTION WIDTH 25.3 % (11.6-16.5); WHITE BLOOD COUNT 3.8 X10^3/uL (3.6-10.0)
[2019-05-31 06:13] LABS: HYPOCHROMASIA SLIGHT; PLATELET MORPHOLOGY COMMENT NORMAL (NORMAL)
[2019-05-31 06:16] LABS: ALANINE AMINOTRANSFERASE 27 Units/L (12-78); ALBUMIN 2.8 g/dL (3.4-5.0); ALKALINE PHOSPHATASE 57 Units/L (46-116); ASPARTATE AMINO TRANSFERASE 22 Units/L (15-37); BLOOD UREA NITROGEN 19 mg/dL (7-18); CALCIUM 8.5 mg/dL (8.5-10.1); CARBON DIOXIDE 22.1 mmol/L (21-32); CHLORIDE 112 mmol/L (98-107); COR CA(FOR HYPOALB) 9.5 mg/dL (8.5-10.1); CREATININE 1.35 mg/dL (0.55-1.02); SODIUM 143 mmol/L (136-145); TOTAL PROTEIN 6.4 g/dL (6.4-8.2); eGFR NON BLACK RACES 41 (>60)
[2019-05-31] MEDS ORDERED: LEXAPRO ONE (08:06)
[2019-05-31] MEDS: ROCEPHIN VIAL 1 GRAM 1 G in NS 100 ML IV + SPIKE MINIBAG* 100 ML IV SCH (08:27)
[2019-05-31] MEDS: PROTONIX INJ 40 MG VIAL IVP SCH (08:27)
[2019-05-31] MEDS: LEXAPRO PO SCH (08:28)
[2019-05-31] MEDS: XANAX PO SCH (08:28)
[2019-05-31] MEDS: ASPIRIN EC 81 MG PO SCH (08:28)
[2019-05-31] MEDS ORDERED: XANAX PO PRN (09:56)
[2019-05-31] MEDS ORDERED: NS 1/2 1000 ML IV 1,000 ML IV ONE ×2 (10:32→21:07)
[2019-05-31] MEDS: NORCO 5/325 MG TAB PO PRN ×2 (10:45→21:15)
[2019-05-31] MEDS: NS 1/2 1000 ML IV 1,000 ML IV SCH ×3 (10:45→23:52)
[2019-05-31] MEDS: SYNTHROID 125 mcg TAB PO SCH (17:27)
[2019-05-31] MEDS: CRESTOR TAB 10 MG PO SCH (21:11)
[2019-05-31] MEDS: XARELTO PO SCH (21:12)
[2019-06-01 06:16] LABS: BASOPHILS % (AUTO) 0.7 % (0.2-1.0); EOSINOPHILS # (AUTO) 0.2 x10^3/uL (0.0-0.2); EOSINOPHILS % (AUTO) 4.5 % (0.9-2.9); HEMOGLOBIN 11.7 g/dL (12.0-16.0); LYMPHOCYTES # (AUTO) 1.4 X10^3/uL (1.3-2.9); LYMPHOCYTES % (AUTO) 39.7 % (21.0-51.0); MEAN CORPUSCULAR HEMOGLOBIN 31.2 pg (27.0-34.0); MEAN CORPUSCULAR HGB CONC 33.5 g/dL (33.0-35.0); MEAN CORPUSCULAR VOLUME 93.1 fL (80.0-100.0); MEAN PLATELET VOLUME 8.4 fL (7.4-11.0); MONOCYTES # (AUTO) 0.3 x10^3/uL (0.3-0.8); MONOCYTES % (AUTO) 9.7 % (0.0-13.0); NEUTROPHILS # (AUTO) 1.6 x10^3/uL (2.2-4.8); NEUTROPHILS % (AUTO) 45.4 % (42.0-75.0); PLATELET COUNT 132 X10^3/uL (150.0-450.0); RED BLOOD COUNT 3.76 X10^6/uL (3.5-5.4); RED CELL DISTRIBUTION WIDTH 25.2 % (11.6-16.5); WHITE BLOOD COUNT 3.6 X10^3/uL (3.6-10.0)
[2019-06-01 06:52] LABS: ANISOCYTOSIS 3+; PLATELET MORPHOLOGY COMMENT NORMAL (NORMAL)
[2019-06-01 07:11] LABS: ALANINE AMINOTRANSFERASE 20 Units/L (12-78); ALBUMIN 2.6 g/dL (3.4-5.0); ALKALINE PHOSPHATASE 53 Units/L (46-116); ASPARTATE AMINO TRANSFERASE 20 Units/L (15-37); BLOOD UREA NITROGEN 12 mg/dL (7-18); CALCIUM 8.3 mg/dL (8.5-10.1); CARBON DIOXIDE 22.6 mmol/L (21-32); CHLORIDE 110 mmol/L (98-107); COR CA(FOR HYPOALB) 9.4 mg/dL (8.5-10.1); CREATININE 1.08 mg/dL (0.55-1.02); SODIUM 142 mmol/L (136-145); TOTAL PROTEIN 5.9 g/dL (6.4-8.2); eGFR NON BLACK RACES 53 (>60)
[2019-06-01] MEDS ORDERED: LEXAPRO ONE (08:16)
[2019-06-01] MEDS ORDERED: NS 1/2 1000 ML IV 1,000 ML IV ONE ×2 (09:19→22:18)
[2019-06-01] MEDS: ASPIRIN EC 81 MG PO SCH (09:21)
[2019-06-01] MEDS: ROCEPHIN VIAL 1 GRAM 1 G in NS 100 ML IV + SPIKE MINIBAG* 100 ML IV SCH (09:22)
[2019-06-01] MEDS: LEXAPRO PO SCH (09:22)
[2019-06-01] MEDS: PROTONIX INJ 40 MG VIAL IVP SCH (09:22)
[2019-06-01] MEDS: NS 1/2 1000 ML IV 1,000 ML IV SCH (09:22)
--- NOTE | 2019-06-01 11:29 | PCM.PROG ---
Progress Note Progress Note for Day of Date of Exam: 06/01/19 Subjective Subjective: Patient seen at bedside, reports feeling better this AM. Bp: 120/58. Denies chest pain, SOB, N/V/D or abdominal pain. Reports eating well. She walked with PT yesterday. No acute complaints for today. Past Medical Family Social History Past Med/Fam/Surg Hx: No changes since H&P Allergies: Allergies Penicillins Allergy (Verified 12/12/17 09:01) Review of Systems ROS: No change since H&P Vital Signs and I&O's Vital Signs: Temperature 98.3 F Pulse Rate [Right Radial] 51 Pulse Rate 47 Respiratory Rate 20 Blood Pressure [Left Arm] 102/51 Blood Pressure [Right Arm] 110/55 Blood Pressure 111/57 O2 Sat by Pulse Oximetry 99 Intake and Output: Intake & Output 05/29/19 05/30/19 05/31/19 06/01/19 23:59 23:59 23:59 23:59 Intake Total 1180 / 1180 2615 / 2615 3255 / 3255 733 / 733 Output Total 1000 / 1000 2 / 2 Balance 1180 / 1180 1615 / 1615 3253 / 3253 733 / 733 Physical Exam Oriented: Normal Throat: Normal Respiratory: Normal Cardiovascular: Normal Auscultation: Bowel Sounds: Normal Palpation: Other (colostomy bag present ) Tenderness: Normal Skin: Normal Musculoskeletal: Normal Psychiatric: Normal Mood Description: Calm Affect: Normal Speech Pattern: Clear and Appropriate Laboratory and Diagnostics Result Diagrams: 06/01/19 05:48 06/01/19 05:48 Labs: Laboratory WBC 3.6 X10^3/uL (3.6-10.0) 06/01/19 05:48 RBC 3.76 X10^6/uL (3.5-5.4) 06/01/19 05:48 Hgb 11.7 g/dL (12.0-16.0) L 06/01/19 05:48 Hct 35.0 % (36.0-47.0) L 06/01/19 05:48 MCV 93.1 fL (80.0-100.0) 06/01/19 05:48 MCH 31.2 pg (27.0-34.0) 06/01/19 05:48 MCHC 33.5 g/dL (33.0-35.0) 06/01/19 05:48 RDW 25.2 % (11.6-16.5) H 06/01/19 05:48 Plt Count 132 X10^3/uL (150.0-450.0) L 06/01/19 05:48 Plt Count Comment Decreased (ADEQUATE) A 06/01/19 05:48 MPV 8.4 fL (7.4-11.0) 06/01/19 05:48 Neut % (Auto) 45.4 % (42.0-75.0) 06/01/19 05:48 Lymph % (Auto) 39.7 % (21.0-51.0) 06/01/19 05:48 [place] % (Auto) 9.7 % (0.0-13.0) 06/01/19 05:48 Eos % (Auto) 4.5 % (0.9-2.9) H 06/01/19 05:48 Baso % (Auto) 0.7 % (0.2-1.0) 06/01/19 05:48 Neut # (Auto) 1.6 x10^3/uL (2.2-4.8) L 06/01/19 05:48 Lymph # (Auto) 1.4 X10^3/uL (1.3-2.9) 06/01/19 05:48 [place] # (Auto) 0.3 x10^3/uL (0.3-0.8) 06/01/19 05:48 Eos # (Auto) 0.2 x10^3/uL (0.0-0.2) 06/01/19 05:48 Baso # (Auto) 0.0 X10^3/uL (0.0-0.1) 06/01/19 05:48 Absolute Nucleated RBC 0.2 /100WBC 06/01/19 05:48 Plt Morphology Comment Normal (NORMAL) 06/01/19 05:48 RBC Morphology Abnormal (NORMAL) A 06/01/19 05:48 Dimorphic RBCs Present 05/29/19 18:40 Hypochromasia Slight A 05/31/19 05:37 Anisocytosis 3+ A 06/01/19 05:48 Macrocytosis 3+ A 05/31/19 05:37 Tear Drop Cells Present 05/29/19 18:40 Sodium 142 mmol/L (136-145) 06/01/19 05:48 Corrected Sodium TNP 06/01/19 05:48 Potassium 4.3 mmol/L (3.5-5.1) 06/01/19 05:48 Chloride 110 mmol/L (98-107) H 06/01/19 05:48 Carbon Dioxide 22.6 mmol/L (21-32) 06/01/19 05:48 BUN 12 mg/dL (7-18) 06/01/19 05:48 Creatinine 1.08 mg/dL (0.55-1.02) H 06/01/19 05:48 Est GFR (MDRD) Af Amer > 60 (>60) 06/01/19 05:48 Est GFR (MDRD) Non-Af 53 (>60) L 06/01/19 05:48 Glucose 87 mg/dL (65-99) 06/01/19 05:48 Calcium 8.3 mg/dL (8.5-10.1) L 06/01/19 05:48 Corrected Calcium 9.4 mg/dL (8.5-10.1) 06/01/19 05:48 Total Bilirubin 0.20 mg/dL (0.2-1.0) 06/01/19 05:48 AST 20 Units/L (15-37) 06/01/19 05:48 ALT 20 Units/L (12-78) 06/01/19 05:48 Alkaline Phosphatase 53 Units/L (46-116) 06/01/19 05:48 Total Protein 5.9 g/dL (6.4-8.2) L 06/01/19 05:48 Albumin 2.6 g/dL (3.4-5.0) L 06/01/19 05:48 Globulin 3.3 g/dL (2.5-4.5) 06/01/19 05:48 Albumin/Globulin Ratio 0.8 Ratio (1.1-2.1) L 06/01/19 05:48 Specimen Type Clean catch urine 05/29/19 23:35 Urine Color Yellow (YELLOW) 05/29/19 23:35 Urine Appearance Slightly hazy (CLEAR) 05/29/19 23:35 Urine pH 5.0 (5.0 - 8.0) 05/29/19 23:35 Ur Specific [place] 1.020 (1.000-1.030) 05/29/19 23:35 Urine Protein 2+ (NEGATIVE) 05/29/19 23:35 Urine Glucose (UA) Negative (NEGATIVE) 05/29/19 23:35 Urine Ketones Negative (NEGATIVE) 05/29/19 23:35 Urine Occult Blood 2+ (NEGATIVE) 05/29/19 23:35 Urine Nitrite Negative (NEGATIVE) 05/29/19 23:35 Urine Bilirubin Negative (NEGATIVE) 05/29/19 23:35 Urine Urobilinogen Normal (NORMAL) 05/29/19 23:35 Ur Leukocyte Esterase 2+ (NEGATIVE) 05/29/19 23:35 Urine RBC 0-2 /HPF (0-3) 05/29/19 23:35 Urine WBC 3-5 /HPF (0-5) 05/29/19 23:35 Ur Squamous Epith Cells Few /HPF (NEGATIVE) 05/29/19 23:35 Ur Renal Epithelial Cell Moderate /HPF (NEGATIVE) 05/29/19 23:35 Urine Bacteria Negative /HPF (NEGATIVE) 05/29/19 23:35 Hyaline Casts Moderate /LPF (NEGATIVE) 05/29/19 23:35 Fine Granular Casts Moderate /LPF (NEGATIVE) 05/29/19 23:35 Ur Culture Indicated? No/not indicated 05/29/19 23:35 Blood Type A NEGATIVE 05/29/19 18:40 Antibody Screen Negative 05/29/19 18:40 Plan (1) Hypotension: Status: Acute Qualifiers: Hypotension type: unspecified hypotension type Qualified Code(s): I95.9 - Hypotension, unspecified Plan: Improved with hydration. Denies dizziness. Continue gentle hydration. (2) Dehydration: Status: Acute Plan: Resolved with hydration (3) Syncope: Status: Acute Qualifiers: Syncope type: unspecified Qualified Code(s): R55 - Syncope and collapse (4) Generalized weakness: Status: Acute Plan: continue PT/OT, encouraged to sit up in chair as tolerated (5) Sinusitis: Status: Acute Qualifiers: Sinusitis location: other Chronicity: acute Recurrence: not specified as recurrent Qualified Code(s): J01.80 - Other acute sinusitis Plan: Continue Rocephin, afebrile, no WBC elevation. (6) ARF (acute renal failure): Status: Acute Qualifiers: Acute renal failure type: unspecified Qualified Code(s): N17.9 - Acute kidney failure, unspecified Plan: pre-renal, Cr: 1.08, improved with hydration (7) Back pain: Status: Acute Qualifiers: Back pain laterality: midline Back pain location: thoracic back pain Chronicity: acute Qualified Code(s): M54.6 - Pain in thoracic spine Plan: continue [place] prn (8) Hypernatremia: Status: Acute Plan: Na: 142, 143 yesterday, continue 1/2 NS gentle hydration
[2019-06-01] MEDS: SYNTHROID 125 mcg TAB PO SCH (17:04)
[2019-06-01] MEDS: NORCO 5/325 MG TAB PO PRN (20:31)
[2019-06-01] MEDS: CRESTOR TAB 10 MG PO SCH (20:31)
[2019-06-01] MEDS: XARELTO PO SCH (20:31)
[2019-06-02] MEDS: NS 1/2 1000 ML IV 1,000 ML IV SCH ×4 (00:25→13:24)
[2019-06-02 06:01] LABS: BLOOD UREA NITROGEN 10 mg/dL (7-18); CALCIUM 8.3 mg/dL (8.5-10.1); CARBON DIOXIDE 22.1 mmol/L (21-32); CHLORIDE 109 mmol/L (98-107); CREATININE 1.19 mg/dL (0.55-1.02); SODIUM 142 mmol/L (136-145); eGFR NON BLACK RACES 47 (>60)
[2019-06-02] MEDS ORDERED: LEXAPRO ONE (08:39)
[2019-06-02] MEDS: ASPIRIN EC 81 MG PO SCH (08:44)
[2019-06-02] MEDS: PROTONIX INJ 40 MG VIAL IVP SCH (08:45)
[2019-06-02] MEDS: LEXAPRO PO SCH (08:45)
[2019-06-02] MEDS: ROCEPHIN VIAL 1 GRAM 1 G in NS 100 ML IV + SPIKE MINIBAG* 100 ML IV SCH (08:45)
--- NOTE | 2019-06-02 10:17 | PCM.PROG ---
Progress Note Progress Note for Day of Date of Exam: 06/02/19 Subjective Subjective: Patient seen at bedside, reports doing well and wants to go home. Last BP: 138/62. She reports eating and drinking well, sat up in the chair yesterday and ambulated in the room. She was seen by PT on Monday but did not participate due to back pain. Patient wants to go home today but lives by herself. She states her daughter lives close by. Past Medical Family Social History Past Med/Fam/Surg Hx: No changes since H&P Allergies: Allergies Penicillins Allergy (Verified 12/12/17 09:01) Review of Systems ROS: No change since H&P Vital Signs and I&O's Vital Signs: Temperature 98.1 F Pulse Rate [Right Radial] 51 Pulse Rate 63 Respiratory Rate 20 Blood Pressure [Left Arm] 102/51 Blood Pressure [Right Arm] 110/55 Blood Pressure 138/62 O2 Sat by Pulse Oximetry 98 Intake and Output: Intake & Output 05/30/19 05/31/19 06/01/19 06/02/19 23:59 23:59 23:59 23:59 Intake Total 2615 / 2615 3255 / 3255 3441 / 3441 885 / 885 Output Total 1000 / 1000 2 / 2 Balance 1615 / 1615 3253 / 3253 3441 / 3441 885 / 885 Physical Exam Oriented: Normal Throat: Normal Respiratory: Normal Cardiovascular: Normal Auscultation: Bowel Sounds: Normal and Other (ilostomy bag present ) Tenderness: Normal Skin: Normal Musculoskeletal: Normal Psychiatric: Normal Mood Description: Calm Affect: Normal Speech Pattern: Clear and Appropriate Laboratory and Diagnostics Result Diagrams: 06/01/19 05:48 06/02/19 05:30 Labs: Laboratory WBC 3.6 X10^3/uL (3.6-10.0) 06/01/19 05:48 RBC 3.76 X10^6/uL (3.5-5.4) 06/01/19 05:48 Hgb 11.7 g/dL (12.0-16.0) L 06/01/19 05:48 Hct 35.0 % (36.0-47.0) L 06/01/19 05:48 MCV 93.1 fL (80.0-100.0) 06/01/19 05:48 MCH 31.2 pg (27.0-34.0) 06/01/19 05:48 MCHC 33.5 g/dL (33.0-35.0) 06/01/19 05:48 RDW 25.2 % (11.6-16.5) H 06/01/19 05:48 Plt Count 132 X10^3/uL (150.0-450.0) L 06/01/19 05:48 Plt Count Comment Decreased (ADEQUATE) A 06/01/19 05:48 MPV 8.4 fL (7.4-11.0) 06/01/19 05:48 Neut % (Auto) 45.4 % (42.0-75.0) 06/01/19 05:48 Lymph % (Auto) 39.7 % (21.0-51.0) 06/01/19 05:48 [place] % (Auto) 9.7 % (0.0-13.0) 06/01/19 05:48 Eos % (Auto) 4.5 % (0.9-2.9) H 06/01/19 05:48 Baso % (Auto) 0.7 % (0.2-1.0) 06/01/19 05:48 Neut # (Auto) 1.6 x10^3/uL (2.2-4.8) L 06/01/19 05:48 Lymph # (Auto) 1.4 X10^3/uL (1.3-2.9) 06/01/19 05:48 [place] # (Auto) 0.3 x10^3/uL (0.3-0.8) 06/01/19 05:48 Eos # (Auto) 0.2 x10^3/uL (0.0-0.2) 06/01/19 05:48 Baso # (Auto) 0.0 X10^3/uL (0.0-0.1) 06/01/19 05:48 Absolute Nucleated RBC 0.2 /100WBC 06/01/19 05:48 Plt Morphology Comment Normal (NORMAL) 06/01/19 05:48 RBC Morphology Abnormal (NORMAL) A 06/01/19 05:48 Dimorphic RBCs Present 05/29/19 18:40 Hypochromasia Slight A 05/31/19 05:37 Anisocytosis 3+ A 06/01/19 05:48 Macrocytosis 3+ A 05/31/19 05:37 Tear Drop Cells Present 05/29/19 18:40 Sodium 142 mmol/L (136-145) 06/02/19 05:30 Corrected Sodium TNP 06/02/19 05:30 Potassium 3.8 mmol/L (3.5-5.1) 06/02/19 05:30 Chloride 109 mmol/L (98-107) H 06/02/19 05:30 Carbon Dioxide 22.1 mmol/L (21-32) 06/02/19 05:30 BUN 10 mg/dL (7-18) 06/02/19 05:30 Creatinine 1.19 mg/dL (0.55-1.02) H 06/02/19 05:30 Est GFR (MDRD) Af Amer 57 (>60) L 06/02/19 05:30 Est GFR (MDRD) Non-Af 47 (>60) L 06/02/19 05:30 Glucose 80 mg/dL (65-99) 06/02/19 05:30 Calcium 8.3 mg/dL (8.5-10.1) L 06/02/19 05:30 Corrected Calcium 9.4 mg/dL (8.5-10.1) 06/01/19 05:48 Total Bilirubin 0.20 mg/dL (0.2-1.0) 06/01/19 05:48 AST 20 Units/L (15-37) 06/01/19 05:48 ALT 20 Units/L (12-78) 06/01/19 05:48 Alkaline Phosphatase 53 Units/L (46-116) 06/01/19 05:48 Total Protein 5.9 g/dL (6.4-8.2) L 06/01/19 05:48 Albumin 2.6 g/dL (3.4-5.0) L 06/01/19 05:48 Globulin 3.3 g/dL (2.5-4.5) 06/01/19 05:48 Albumin/Globulin Ratio 0.8 Ratio (1.1-2.1) L 06/01/19 05:48 Specimen Type Clean catch urine 05/29/19 23:35 Urine Color Yellow (YELLOW) 05/29/19 23:35 Urine Appearance Slightly hazy (CLEAR) 05/29/19 23:35 Urine pH 5.0 (5.0 - 8.0) 05/29/19 23:35 Ur Specific [place] 1.020 (1.000-1.030) 05/29/19 23:35 Urine Protein 2+ (NEGATIVE) 05/29/19 23:35 Urine Glucose (UA) Negative (NEGATIVE) 05/29/19 23:35 Urine Ketones Negative (NEGATIVE) 05/29/19 23:35 Urine Occult Blood 2+ (NEGATIVE) 05/29/19 23:35 Urine Nitrite Negative (NEGATIVE) 05/29/19 23:35 Urine Bilirubin Negative (NEGATIVE) 05/29/19 23:35 Urine Urobilinogen Normal (NORMAL) 05/29/19 23:35 Ur Leukocyte Esterase 2+ (NEGATIVE) 05/29/19 23:35 Urine RBC 0-2 /HPF (0-3) 05/29/19 23:35 Urine WBC 3-5 /HPF (0-5) 05/29/19 23:35 Ur Squamous Epith Cells Few /HPF (NEGATIVE) 05/29/19 23:35 Ur Renal Epithelial Cell Moderate /HPF (NEGATIVE) 05/29/19 23:35 Urine Bacteria Negative /HPF (NEGATIVE) 05/29/19 23:35 Hyaline Casts Moderate /LPF (NEGATIVE) 05/29/19 23:35 Fine Granular Casts Moderate /LPF (NEGATIVE) 05/29/19 23:35 Ur Culture Indicated? No/not indicated 05/29/19 23:35 Blood Type A NEGATIVE 05/29/19 18:40 Antibody Screen Negative 05/29/19 18:40 Plan (1) Hypotension: Status: Acute Qualifiers: Hypotension type: unspecified hypotension type Qualified Code(s): I95.9 - Hypotension, unspecified Plan: Resolved, Denies dizziness. (2) Dehydration: Status: Acute Plan: Resolved with hydration (3) Syncope: Status: Acute Qualifiers: Syncope type: unspecified Qualified Code(s): R55 - Syncope and collapse Plan: no further episodes, likely due to hypotension and dehydration (4) Generalized weakness: Status: Acute Plan: ambulating in the room, PT evaluation tomorrow. patient was not able to participate on Monday due to back pain, lives alone. Discussed fall risk at home. (5) Sinusitis: Status: Acute Qualifiers: Sinusitis location: other Chronicity: acute Recurrence: not specified as recurrent Qualified Code(s): J01.80 - Other acute sinusitis Plan: Switch to cefdinir, afebrile, no WBC elevation. (6) ARF (acute renal failure): Status: Acute Qualifiers: Acute renal failure type: unspecified Qualified Code(s): N17.9 - Acute kidney failure, unspecified Plan: pre-renal, Cr: 1.19 improved with hydration (7) Back pain: Status: Acute Qualifiers: Back pain laterality: midline Back pain location: thoracic back pain Chronicity: acute Qualified Code(s): M54.6 - Pain in thoracic spine Plan: continue [place] prn (8) Hypernatremia: Status: Acute Plan: Na: 142, continue 1/2 NS gentle hydration
[2019-06-02] MEDS ORDERED: NS 1/2 1000 ML IV 1,000 ML IV ONE (13:22)
[2019-06-02] MEDS: SYNTHROID 125 mcg TAB PO SCH (16:33)
[2019-06-02] MEDS: NORCO 5/325 MG TAB PO PRN (17:10)
[2019-06-02] MEDS: OMNICEF CAP 300 MG PO SCH (20:28)
[2019-06-02] MEDS: CRESTOR TAB 10 MG PO SCH (20:28)
[2019-06-02] MEDS: XARELTO PO SCH (20:29)
[2019-06-03] MEDS: NS 1/2 1000 ML IV 1,000 ML IV SCH ×2 (03:10→06:58)
[2019-06-03] MEDS ORDERED: NS 1/2 1000 ML IV 1,000 ML IV ONE (05:09)
[2019-06-03 06:32] LABS: BASOPHILS % (AUTO) 0.4 % (0.2-1.0); EOSINOPHILS # (AUTO) 0.1 x10^3/uL (0.0-0.2); EOSINOPHILS % (AUTO) 4.4 % (0.9-2.9); HEMATOCRIT 35.2 % (36.0-47.0); LYMPHOCYTES # (AUTO) 1.5 X10^3/uL (1.3-2.9); LYMPHOCYTES % (AUTO) 43.9 % (21.0-51.0); MEAN CORPUSCULAR HEMOGLOBIN 31.3 pg (27.0-34.0); MEAN CORPUSCULAR HGB CONC 34.1 g/dL (33.0-35.0); MEAN CORPUSCULAR VOLUME 91.7 fL (80.0-100.0); MEAN PLATELET VOLUME 8.3 fL (7.4-11.0); MONOCYTES # (AUTO) 0.3 x10^3/uL (0.3-0.8); MONOCYTES % (AUTO) 7.5 % (0.0-13.0); NEUTROPHILS # (AUTO) 1.5 x10^3/uL (2.2-4.8); NEUTROPHILS % (AUTO) 43.8 % (42.0-75.0); PLATELET COUNT 134 X10^3/uL (150.0-450.0); RED BLOOD COUNT 3.84 X10^6/uL (3.5-5.4); RED CELL DISTRIBUTION WIDTH 24.8 % (11.6-16.5); WHITE BLOOD COUNT 3.4 X10^3/uL (3.6-10.0)
[2019-06-03 06:37] LABS: BLOOD UREA NITROGEN 7 mg/dL (7-18); CALCIUM 8.2 mg/dL (8.5-10.1); CARBON DIOXIDE 20.4 mmol/L (21-32); CHLORIDE 110 mmol/L (98-107); CREATININE 1.07 mg/dL (0.55-1.02); SODIUM 141 mmol/L (136-145); eGFR NON BLACK RACES 54 (>60)
[2019-06-03 07:07] LABS: PLATELET MORPHOLOGY COMMENT NORMAL (NORMAL)
[2019-06-03 07:11] LABS: ANISOCYTOSIS 2+; MICROCYTOSIS 1+
[2019-06-03] MEDS ORDERED: LEXAPRO ONE (09:25)
[2019-06-03] MEDS: ASPIRIN EC 81 MG PO SCH (09:34)
[2019-06-03] MEDS: LEXAPRO PO SCH (09:35)
[2019-06-03] MEDS: PROTONIX INJ 40 MG VIAL IVP SCH (09:35)
[2019-06-03] MEDS: OMNICEF CAP 300 MG PO SCH (09:35)
[2019-06-03 11:35] VITALS: BP 124/68
--- NOTE | 2019-07-06 22:36 | PCM.PROG ---
Progress Note - Progress Note for Day of Date of Exam: 05/30/19 - Subjective Subjective: WAS ADMITTED FOR FURTHER EVALUATION AND TREATMENT OF HYPOTENSION, NEAR SYNCOPE, AND ACUTE SINUSITIS. TODAY, SHE IS ALERT AND ORIENTED, LYING IN BED ON MORNING ROUNDS. SHE CONTINUES WITH COMPLAINTS OF WEAKNESS, DIZZINES, SINUS CONGESTION, AND SHORTNESS OF BREATH. ON EXAMINATION, HEART IS REGULAR IN RATE AND RHYTHM. BILATERAL LUNGS ARE NOTED WITH DIMINISHED LUNG SOUNDS THROUGHOUT. ABDOMEN IS ROUND, SOFT, AND NON-TENDER WITH NORMAL BOWEL SOUNDS NOTED IN ALL QUADRANTS. HER VITALS THIS MORNING ARE: 96.9-45-20-100%-118/56. LABS WERE OBTAINED. ABNORMAL LAB VALUES INCLUDE THE FOLLOWING: PLT COUNT 149, BUN 27, CREATININE 2.14, ALBUMIN 3.1. URINALYSIS OBTAINED ON ADMISSION REVEALED: WBC 3-5, LEUKOCYTES 2+. A CHEST XRAY WAS OBTAINED ON ADMISSION AND REVEALED: CONTINUED CARDIOMEGALY WITHOUT CHF. NO INFILTRATES. A LUMBAR SPINE XRAY WAS OBTAINED ON ADMISSION AND REVEALED: Multilevel degenerative disc disease involving all lumbar levels. Facet degenerative joint disease L5-S1 bilaterally. Levoscoliosis. TODAY, WE WILL START ROCPEHIN 1G IV DAILY FOR UTI. OTHERWISE, WE PLAN TO FOLLOW UP WITH AM LABS AND CONTINUE TO MONITOR. - Past Medical Family Social History Past Med/Fam/Surg Hx: No changes since H&P Allergies: Allergies Penicillins Allergy (Verified 12/12/17 09:01) - Review of Systems ROS: No change since H&P - Vital Signs and I&O's Vital Signs: Temperature 98.3 F Pulse Rate [Right Radial] 51 Pulse Rate 74 Respiratory Rate 18 Blood Pressure [Left Arm] 102/51 Blood Pressure [Right Arm] 110/55 Blood Pressure 124/68 O2 Sat by Pulse Oximetry 97 - Physical Exam Oriented: Normal Throat: Normal Respiratory: Normal Cardiovascular: Normal Auscultation: Bowel Sounds: Normal, Other (ilostomy bag present) Palpation: Normal Tenderness: Normal Skin: Normal Musculoskeletal: Normal Psychiatric: Normal Mood Description: Calm Affect: Normal Speech Pattern: Clear, Appropriate - Laboratory and Diagnostics Result Diagrams: 06/03/19 05:55 06/03/19 05:55 Labs: Laboratory WBC 3.4 X10^3/uL (3.6-10.0) L 06/03/19 05:55 RBC 3.84 X10^6/uL (3.5-5.4) 06/03/19 05:55 Hgb 12.0 g/dL (12.0-16.0) 06/03/19 05:55 Hct 35.2 % (36.0-47.0) L 06/03/19 05:55 MCV 91.7 fL (80.0-100.0) 06/03/19 05:55 MCH 31.3 pg (27.0-34.0) 06/03/19 05:55 MCHC 34.1 g/dL (33.0-35.0) 06/03/19 05:55 RDW 24.8 % (11.6-16.5) H 06/03/19 05:55 Plt Count 134 X10^3/uL (150.0-450.0) L 06/03/19 05:55 Plt Count Comment Decreased (ADEQUATE) A 06/03/19 05:55 MPV 8.3 fL (7.4-11.0) 06/03/19 05:55 Neut % (Auto) 43.8 % (42.0-75.0) 06/03/19 05:55 Lymph % (Auto) 43.9 % (21.0-51.0) 06/03/19 05:55 [place] % (Auto) 7.5 % (0.0-13.0) 06/03/19 05:55 Eos % (Auto) 4.4 % (0.9-2.9) H 06/03/19 05:55 Baso % (Auto) 0.4 % (0.2-1.0) 06/03/19 05:55 Neut # (Auto) 1.5 x10^3/uL (2.2-4.8) L 06/03/19 05:55 Lymph # (Auto) 1.5 X10^3/uL (1.3-2.9) 06/03/19 05:55 [place] # (Auto) 0.3 x10^3/uL (0.3-0.8) 06/03/19 05:55 Eos # (Auto) 0.1 x10^3/uL (0.0-0.2) 06/03/19 05:55 Baso # (Auto) 0.0 X10^3/uL (0.0-0.1) 06/03/19 05:55 Absolute Nucleated RBC 0.0 /100WBC 06/03/19 05:55 Plt Morphology Comment Normal (NORMAL) 06/03/19 05:55 RBC Morphology Abnormal (NORMAL) A 06/03/19 05:55 Dimorphic RBCs Present 05/29/19 18:40 Hypochromasia Slight A 05/31/19 05:37 Anisocytosis 2+ A 06/03/19 05:55 Microcytosis 1+ A 06/03/19 05:55 Macrocytosis 3+ A 05/31/19 05:37 Tear Drop Cells Present 05/29/19 18:40 Sodium 141 mmol/L (136-145) 06/03/19 05:55 Corrected Sodium TNP 06/03/19 05:55 Potassium 4.1 mmol/L (3.5-5.1) 06/03/19 05:55 Chloride 110 mmol/L (98-107) H 06/03/19 05:55 Carbon Dioxide 20.4 mmol/L (21-32) L 06/03/19 05:55 BUN 7 mg/dL (7-18) 06/03/19 05:55 Creatinine 1.07 mg/dL (0.55-1.02) H 06/03/19 05:55 Est GFR (MDRD) Af Amer > 60 (>60) 06/03/19 05:55 Est GFR (MDRD) Non-Af 54 (>60) L 06/03/19 05:55 Glucose 73 mg/dL (65-99) 06/03/19 05:55 Calcium 8.2 mg/dL (8.5-10.1) L 06/03/19 05:55 Corrected Calcium 9.4 mg/dL (8.5-10.1) 06/01/19 05:48 Total Bilirubin 0.20 mg/dL (0.2-1.0) 06/01/19 05:48 AST 20 Units/L (15-37) 06/01/19 05:48 ALT 20 Units/L (12-78) 06/01/19 05:48 Alkaline Phosphatase 53 Units/L (46-116) 06/01/19 05:48 Total Protein 5.9 g/dL (6.4-8.2) L 06/01/19 05:48 Albumin 2.6 g/dL (3.4-5.0) L 06/01/19 05:48 Globulin 3.3 g/dL (2.5-4.5) 06/01/19 05:48 Albumin/Globulin Ratio 0.8 Ratio (1.1-2.1) L 06/01/19 05:48 Specimen Type Clean catch urine 05/29/19 23:35 Urine Color Yellow (YELLOW) 05/29/19 23:35 Urine Appearance Slightly hazy (CLEAR) 05/29/19 23:35 Urine pH 5.0 (5.0 - 8.0) 05/29/19 23:35 Ur Specific [place] 1.020 (1.000-1.030) 05/29/19 23:35 Urine Protein 2+ (NEGATIVE) 05/29/19 23:35 Urine Glucose (UA) Negative (NEGATIVE) 05/29/19 23:35 Urine Ketones Negative (NEGATIVE) 05/29/19 23:35 Urine Occult Blood 2+ (NEGATIVE) 05/29/19 23:35 Urine Nitrite Negative (NEGATIVE) 05/29/19 23:35 Urine Bilirubin Negative (NEGATIVE) 05/29/19 23:35 Urine Urobilinogen Normal (NORMAL) 05/29/19 23:35 Ur Leukocyte Esterase 2+ (NEGATIVE) 05/29/19 23:35 Urine RBC 0-2 /HPF (0-3) 05/29/19 23:35 Urine WBC 3-5 /HPF (0-5) 05/29/19 23:35 Ur Squamous Epith Cells Few /HPF (NEGATIVE) 05/29/19 23:35 Ur Renal Epithelial Cell Moderate /HPF (NEGATIVE) 05/29/19 23:35 Urine Bacteria Negative /HPF (NEGATIVE) 05/29/19 23:35 Hyaline Casts Moderate /LPF (NEGATIVE) 05/29/19 23:35 Fine Granular Casts Moderate /LPF (NEGATIVE) 05/29/19 23:35 Ur Culture Indicated? No/not indicated 05/29/19 23: Blood Type A NEGATIVE 05/29/19 18:40 Antibody Screen Negative 05/29/19 18:40
== END 2019-06-03 11:47 | disposition home or self-care (01) | DRG 315 ==
LOC: ICU → OBSVTOIN 17:39 → INTOOBSV 17:39 → OBSVTOIN 06-01 10:52
PROVIDERS: ADMIT Internal Medicine; ATTEND Internal Medicine
DX: R55 Syncope and collapse; E03.8 Other specified hypothyroidism; I95.89 Other hypotension; N17.8 Other acute kidney failure; E87.0 Hyperosmolality and hypernatremia; J01.80 Other acute sinusitis; Z79.01 Long term (current) use of anticoagulants; R53.1 Weakness; K21.9 Gastro-esophageal reflux disease without esophagitis; Z85.038 Personal history of other malignant neoplasm of large intestine; M51.37 Other intervertebral disc degeneration, lumbosacral region; Z90.49 Acquired absence of other specified parts of digestive tract; D64.89 Other specified anemias; E86.0 Dehydration
CPT/HCPCS: 36415; 71010; 71045; 72100; 80048; 80053; 81001; 85025; 86850; 86900; 86901; 92526; 92610; 97162; 97165; 97535; A4222; C9113; G0378; J0696; J1642; J7030; J7040; J7050

== ENCOUNTER 2019-08-26 13:54 | Observation (INO) ==
[2019-08-26] MEDS ORDERED: TUSSIONEX PENNKINETIC SUSP PO PRN (15:59)
[2019-08-26] MEDS ORDERED: LEVAQUIN PREMIX IV 750 MG 750 MG/150 ML BAG IV SCH (16:00)
[2019-08-26] MEDS ORDERED: SALINE 3% 15 ML NEB TX NEB ONE (16:34)
[2019-08-26] MEDS: DUONEB 0.5 MG/3 MG (3 mL) NEB SCH ×2 (16:44→20:12)
[2019-08-26] MEDS ORDERED: NS 1/2 1000 ML IV 1,000 ML IV ONE (16:59)
[2019-08-26 17:01] LABS: BASOPHILS % (AUTO) 0.3 % (0.2-1.0); EOSINOPHILS # (AUTO) 0.1 x10^3/uL (0.0-0.2); HEMATOCRIT 42.4 % (36.0-47.0); HEMOGLOBIN 14.3 g/dL (12.0-16.0); LYMPHOCYTES # (AUTO) 1.2 X10^3/uL (1.3-2.9); LYMPHOCYTES % (AUTO) 20.7 % (21.0-51.0); MEAN CORPUSCULAR HEMOGLOBIN 32.6 pg (27.0-34.0); MEAN CORPUSCULAR HGB CONC 33.7 g/dL (33.0-35.0); MEAN CORPUSCULAR VOLUME 96.6 fL (80.0-100.0); MEAN PLATELET VOLUME 8.4 fL (7.4-11.0); MONOCYTES # (AUTO) 0.5 x10^3/uL (0.3-0.8); MONOCYTES % (AUTO) 7.8 % (0.0-13.0); NEUTROPHILS # (AUTO) 4.1 x10^3/uL (2.2-4.8); NEUTROPHILS % (AUTO) 70.2 % (42.0-75.0); PLATELET COUNT 186 X10^3/uL (150.0-450.0); RED BLOOD COUNT 4.39 X10^6/uL (3.5-5.4); RED CELL DISTRIBUTION WIDTH 17.2 % (11.6-16.5); WHITE BLOOD COUNT 5.9 X10^3/uL (3.6-10.0)
[2019-08-26] MEDS: ROBITUSSIN DM PO SCH ×2 (17:22→20:53)
[2019-08-26] MEDS: NS 1/2 1000 ML IV 1,000 ML IV SCH (17:23)
[2019-08-26] MEDS: FORTAZ or TAZICEF VIAL INJ 1 G in NS 100 ML IV + SPIKE MINIBAG* 100 ML IV SCH ×2 (17:23→22:30)
[2019-08-26 17:28] LABS: ALANINE AMINOTRANSFERASE 97 Units/L (12-78); ALKALINE PHOSPHATASE 109 Units/L (46-116); ASPARTATE AMINO TRANSFERASE 90 Units/L (15-37); BLOOD UREA NITROGEN 20 mg/dL (7-18); CALCIUM 10.1 mg/dL (8.5-10.1); CARBON DIOXIDE 22.7 mmol/L (21-32); CHLORIDE 98 mmol/L (98-107); SODIUM 133 mmol/L (136-145); TOTAL PROTEIN 9.1 g/dL (6.4-8.2); eGFR NON BLACK RACES 28 (>60)
[2019-08-26 18:32] VITALS: BMI 22.6
[2019-08-26] MEDS ORDERED: TYLENOL 325 MG TAB PO PRN (19:54)
--- NOTE | 2019-08-26 20:45 | RAD ---
HISTORYPNEUMONIASTUDYCHEST, PA/LAT [id number]/13/2019FINDINGSThe trachea is midline. The cardiac silhouette is stable. Right chest port unchanged. Chronic interstitial markings without focal infiltrate or effusion. The bony thorax is unremarkable.IMPRESSIONNo acute cardiopulmonary disease.Electronically signed by: LU JUÁREZ (Aug 26, 2019 20:43:30)
[2019-08-26] MEDS: CRESTOR TAB 10 MG PO SCH (20:53)
[2019-08-27] MEDS: FORTAZ or TAZICEF VIAL INJ 1 G in NS 100 ML IV + SPIKE MINIBAG* 100 ML IV SCH ×3 (06:17→21:08)
[2019-08-27] MEDS: NS 1/2 1000 ML IV 1,000 ML IV SCH ×2 (06:20→13:56)
--- NOTE | 2019-08-27 06:29 | RAD ---
HISTORYShortness of breathSTUDYCHEST, 1 [id number]/20/2020FINDINGSThere is a right-sided port present. The heart is enlarged. No congestive heart failure is noted. No acute alveolar infiltrates or pleural effusions are identified. Bony thorax is unremarkable.IMPRESSIONCardiomegaly without congestive heart failureNo infiltratesElectronically signed by: LU JUÁREZ (Aug 27, 2019 06:27:39)
[2019-08-27 06:33] LABS: BASOPHILS % (AUTO) 0.3 % (0.2-1.0); EOSINOPHILS % (AUTO) 0.7 % (0.9-2.9); HEMATOCRIT 34.8 % (36.0-47.0); LYMPHOCYTES # (AUTO) 1.4 X10^3/uL (1.3-2.9); LYMPHOCYTES % (AUTO) 22.3 % (21.0-51.0); MEAN CORPUSCULAR HEMOGLOBIN 32.5 pg (27.0-34.0); MEAN CORPUSCULAR HGB CONC 34.4 g/dL (33.0-35.0); MEAN CORPUSCULAR VOLUME 94.3 fL (80.0-100.0); MONOCYTES # (AUTO) 0.5 x10^3/uL (0.3-0.8); MONOCYTES % (AUTO) 8.3 % (0.0-13.0); NEUTROPHILS # (AUTO) 4.3 x10^3/uL (2.2-4.8); NEUTROPHILS % (AUTO) 68.4 % (42.0-75.0); PLATELET COUNT 153 X10^3/uL (150.0-450.0); RED BLOOD COUNT 3.69 X10^6/uL (3.5-5.4); WHITE BLOOD COUNT 6.3 X10^3/uL (3.6-10.0)
[2019-08-27 07:05] LABS: CALCIUM 8.6 mg/dL (8.5-10.1); CARBON DIOXIDE 19.6 mmol/L (21-32); COR CA(FOR HYPOALB) 9.4 mg/dL (8.5-10.1); CREATININE 1.48 mg/dL (0.55-1.02)
[2019-08-27] MEDS ORDERED: LEXAPRO ONE (08:48)
[2019-08-27] MEDS: XARELTO PO SCH (09:02)
[2019-08-27] MEDS: LEXAPRO PO SCH (09:02)
[2019-08-27] MEDS: VSL#3 PO SCH (09:02)
[2019-08-27] MEDS: ROBITUSSIN DM PO SCH ×4 (09:02→21:08)
[2019-08-27] MEDS: PROTONIX TAB 40 MG PO SCH (09:02)
[2019-08-27] MEDS: DUONEB 0.5 MG/3 MG (3 mL) NEB SCH ×4 (09:15→20:25)
--- NOTE | 2019-08-27 10:43 | DR.UPDATE ---
H&P Update History and Physical Update: History and Physical reviewed and patient examined. Changes noted: Yes with the following: PRESENTED TO THE OFFICE YESTERDAY WITH COMPLAINTS OF SHORTNESS OF BREATH AND COUGH. SYMPTOMS STARTED ABOUT ONE WEEK AGO. SHE HAS BEEN TAKING TAMIFLU DUE TO POSITIVE FLU SWAB. SHE HAS RECEIVED ROCEPHIN 1G IM IN THE OFFICE AND HAS BEEN TAKING RESPIRATORY TREATMENTS AT HOME, HOWEVER, SYMPTOMS HAVE PROGRESSIVELY GOTTEN WORSE. SHE WAS ADMITTED FOR FURTHER EVALUATION AND TREATMENT OF BEONCHOPNEUMONIA. ON ARRIVAL, VITALS WERE 97.5-52-18-98%-110/66. LABS WERE OBTAINED. ABNORMAL LAB VALUES INCLUDE THE FOLLOWING: SODIUM 133, BUN 20, CREATININE 1.90, GLUCOSE 110, AST 90, ALT 97, TOTAL PROTEIN 9.1. BLOOD CULTURES WERE OBTAINED. A CHEST XRAY WAS OBTAINED AND REVEALED: NO ACUTE CARDIOPULMONARY DISEASE. SHE WAS STARTED ON IV FORTAZ, IV LEVAQUIN, 1/2NS AT 75ML/HR, RESPIRATORY TX, AND SUPPLEMENTAL OXYGEN. WE PLAN TO FOLLOW UP WITH AM LABS AND CHEST XRAY AND CONTINUE TO MONITOR. Prescription drug monitoring program results: PDMP was not reviewed H&P Reviewed: Yes Patient was examined?: Yes
[2019-08-27] MEDS ORDERED: ARTIFICIAL TEARS DROPS AFFEYE PRN (11:01)
[2019-08-27] MEDS: SYNTHROID 125 mcg TAB PO SCH (11:28)
[2019-08-27] MEDS ORDERED: NS 1/2 1000 ML IV 1,000 ML IV ONE (13:49)
[2019-08-27] MEDS: CRESTOR TAB 10 MG PO SCH (21:07)
[2019-08-28] MEDS: FORTAZ or TAZICEF VIAL INJ 1 G in NS 100 ML IV + SPIKE MINIBAG* 100 ML IV SCH (05:20)
--- NOTE | 2019-08-28 06:17 | RAD ---
HISTORYShortness of breathSTUDYCHEST, 1 [id number]/21/2020FINDINGSThere is a port present on the right. The heart is enlarged. No congestive heart failure is noted. No acute alveolar infiltrates or pleural effusions are identified. The bony thorax is unremarkable.IMPRESSIONContinued cardiomegaly without congestive heart failureNo acute infiltratesElectronically signed by: LU JUÁREZ (Aug 28, 2019 06:16:16)
[2019-08-28 06:55] LABS: BASOPHILS % (AUTO) 0.4 % (0.2-1.0); EOSINOPHILS # (AUTO) 0.1 x10^3/uL (0.0-0.2); EOSINOPHILS % (AUTO) 2.8 % (0.9-2.9); HEMATOCRIT 32.4 % (36.0-47.0); HEMOGLOBIN 11.1 g/dL (12.0-16.0); LYMPHOCYTES # (AUTO) 1.5 X10^3/uL (1.3-2.9); LYMPHOCYTES % (AUTO) 30.7 % (21.0-51.0); MEAN CORPUSCULAR HEMOGLOBIN 32.4 pg (27.0-34.0); MEAN CORPUSCULAR HGB CONC 34.4 g/dL (33.0-35.0); MEAN CORPUSCULAR VOLUME 94.1 fL (80.0-100.0); MEAN PLATELET VOLUME 7.8 fL (7.4-11.0); MONOCYTES # (AUTO) 0.3 x10^3/uL (0.3-0.8); NEUTROPHILS # (AUTO) 2.9 x10^3/uL (2.2-4.8); NEUTROPHILS % (AUTO) 59.1 % (42.0-75.0); PLATELET COUNT 135 X10^3/uL (150.0-450.0); RED BLOOD COUNT 3.44 X10^6/uL (3.5-5.4); RED CELL DISTRIBUTION WIDTH 17.3 % (11.6-16.5); WHITE BLOOD COUNT 4.9 X10^3/uL (3.6-10.0)
[2019-08-28 07:30] LABS: ALANINE AMINOTRANSFERASE 55 Units/L (12-78); ALBUMIN 2.7 g/dL (3.4-5.0); ALKALINE PHOSPHATASE 68 Units/L (46-116); ASPARTATE AMINO TRANSFERASE 23 Units/L (15-37); BLOOD UREA NITROGEN 12 mg/dL (7-18); CALCIUM 8.1 mg/dL (8.5-10.1); CARBON DIOXIDE 18.6 mmol/L (21-32); CHLORIDE 105 mmol/L (98-107); COR CA(FOR HYPOALB) 9.1 mg/dL (8.5-10.1); CREATININE 1.18 mg/dL (0.55-1.02); SODIUM 136 mmol/L (136-145); TOTAL PROTEIN 6.3 g/dL (6.4-8.2); eGFR NON BLACK RACES 48 (>60)
[2019-08-28] MEDS ORDERED: NS 1/2 1000 ML IV 1,000 ML IV ONE (08:09)
[2019-08-28] MEDS: PROTONIX TAB 40 MG PO SCH (08:16)
[2019-08-28] MEDS: VSL#3 PO SCH (08:16)
[2019-08-28] MEDS: SYNTHROID 125 mcg TAB PO SCH (08:16)
[2019-08-28] MEDS: ROBITUSSIN DM PO SCH (08:16)
[2019-08-28] MEDS: XARELTO PO SCH (08:16)
[2019-08-28] MEDS: NS 1/2 1000 ML IV 1,000 ML IV SCH (08:17)
[2019-08-28 08:43] VITALS: BP 89/50
[2019-08-28] MEDS ORDERED: LEVAQUIN PREMIX IV 750 MG 750 MG/150 ML BAG IV SCH (09:00)
[2019-08-28] MEDS ORDERED: VITAMIN D3 PO SCH (09:00)
[2019-08-28] MEDS: DUONEB 0.5 MG/3 MG (3 mL) NEB SCH (09:30)
[2019-08-28] MEDS ORDERED: LEXAPRO ONE (10:52)
[2019-08-28] MEDS: LEXAPRO PO SCH (10:54)
[2019-08-28] MEDS ORDERED: FORTAZ or TAZICEF VIAL INJ 1 G in NS 100 ML IV + SPIKE MINIBAG* 100 ML IV SCH (21:00)
== END 2019-08-28 12:20 | disposition home or self-care (01) ==
LOC: MED/SURG
PROVIDERS: ADMIT Internal Medicine; ATTEND Internal Medicine
CPT/HCPCS: 36415; 71010; 71020; 71045; 71046; 80053; 85025; 87040; 94640; 94760; 97162; A4222; G0378; J0713; J1642; J1956; J3490; J7050; J7620

== ENCOUNTER 2021-12-22 12:00 | Observation (INO) ==
[2021-12-22] MEDS ORDERED: NS 500 ML IV 500 ML IV ONE (15:31)
[2021-12-22 16:05] VITALS: BMI 23.4
[2021-12-22 16:16] LABS: BASOPHILS % (AUTO) 0.4 % (0.2-1.0); EOSINOPHILS # (AUTO) 0.1 x10^3/uL (0.0-0.2); EOSINOPHILS % (AUTO) 2.2 % (0.9-2.9); HEMATOCRIT 31.7 % (36.0-47.0); HEMOGLOBIN 10.8 g/dL (12.0-16.0); LYMPHOCYTES # (AUTO) 1.2 X10^3/uL (1.3-2.9); LYMPHOCYTES % (AUTO) 25.4 % (21.0-51.0); MEAN CORPUSCULAR HEMOGLOBIN 30.6 pg (27.0-34.0); MEAN CORPUSCULAR HGB CONC 34.1 g/dL (33.0-35.0); MEAN CORPUSCULAR VOLUME 89.8 fL (80.0-100.0); MEAN PLATELET VOLUME 7.7 fL (7.4-11.0); MONOCYTES # (AUTO) 0.3 x10^3/uL (0.3-0.8); MONOCYTES % (AUTO) 7.1 % (0.0-13.0); NEUTROPHILS % (AUTO) 64.9 % (42.0-75.0); RED BLOOD COUNT 3.53 X10^6/uL (3.5-5.4); RED CELL DISTRIBUTION WIDTH 13.8 % (11.6-16.5); WHITE BLOOD COUNT 4.7 X10^3/uL (3.6-10.0)
[2021-12-22 16:29] LABS: CALCIUM 8.7 mg/dL (8.5-10.1); COR CA(FOR HYPOALB) 9.5 mg/dL (8.5-10.1); CREATININE 1.66 mg/dL (0.55-1.02); TOTAL PROTEIN 6.5 g/dL (6.4-8.2)
[2021-12-22 16:37] LABS: FREE T4 (FREE THYROXINE) 0.92 ng/dL (0.76-1.46); TSH (3RD GENERATION) 0.544 uIU/mL (0.358-3.74)
[2021-12-22] MEDS: MORPHINE SULFATE INJ 2 MG INJ IVP PRN ×2 (17:08→22:53)
[2021-12-22] MEDS: NS 1,000 ML IV 1,000 ML IV SCH (17:39)
[2021-12-22 21:22] LABS: BILIRUBIN,URINE NEGATIVE (NEGATIVE); BLOOD/HEMOGLOBIN,URINE NEGATIVE (NEGATIVE); GLUCOSE, URINE NEGATIVE (NEGATIVE); KETONES,URINE NEGATIVE (NEGATIVE); LEUKOCYTE ESTERASE ,URINE NEGATIVE (NEGATIVE); NITRITES,URINE NEGATIVE (NEGATIVE); PROTEIN,URINE NEGATIVE (NEGATIVE); UROBILINOGEN,URINE NORMAL (NORMAL)
[2021-12-22 21:38] LABS: APPEARANCE,URINE CLEAR (CLEAR); COLOR,URINE YELLOW (YELLOW)
[2021-12-22] MEDS: ULTRAM PO SCH (21:40)
[2021-12-22] MEDS: CRESTOR TAB 10 MG PO SCH (21:40)
[2021-12-22] MEDS: XANAX PO SCH (21:40)
[2021-12-23] MEDS: NS 1,000 ML IV 1,000 ML IV SCH ×4 (01:11→21:04)
[2021-12-23 04:49] LABS: BASOPHILS % (AUTO) 0.5 % (0.2-1.0); EOSINOPHILS # (AUTO) 0.2 x10^3/uL (0.0-0.2); EOSINOPHILS % (AUTO) 4.2 % (0.9-2.9); HEMATOCRIT 28.4 % (36.0-47.0); HEMOGLOBIN 9.9 g/dL (12.0-16.0); LYMPHOCYTES # (AUTO) 1.5 X10^3/uL (1.3-2.9); LYMPHOCYTES % (AUTO) 39.7 % (21.0-51.0); MEAN CORPUSCULAR HGB CONC 34.8 g/dL (33.0-35.0); MEAN CORPUSCULAR VOLUME 89.1 fL (80.0-100.0); MEAN PLATELET VOLUME 7.7 fL (7.4-11.0); MONOCYTES # (AUTO) 0.4 x10^3/uL (0.3-0.8); MONOCYTES % (AUTO) 9.3 % (0.0-13.0); NEUTROPHILS # (AUTO) 1.8 x10^3/uL (2.2-4.8); NEUTROPHILS % (AUTO) 46.3 % (42.0-75.0); RED BLOOD COUNT 3.18 X10^6/uL (3.5-5.4); RED CELL DISTRIBUTION WIDTH 14.2 % (11.6-16.5); WHITE BLOOD COUNT 3.8 X10^3/uL (3.6-10.0)
[2021-12-23 05:13] LABS: ALANINE AMINOTRANSFERASE 14 Units/L (12-78); ALBUMIN 2.6 g/dL (3.4-5.0); ALKALINE PHOSPHATASE 63 Units/L (46-116); ASPARTATE AMINO TRANSFERASE 18 Units/L (15-37); BLOOD UREA NITROGEN 18 mg/dL (7-18); CALCIUM 8.1 mg/dL (8.5-10.1); CARBON DIOXIDE 24.2 mmol/L (21-32); CHLORIDE 109 mmol/L (98-107); COR CA(FOR HYPOALB) 9.2 mg/dL (8.5-10.1); CREATININE 1.32 mg/dL (0.55-1.02); SODIUM 140 mmol/L (136-145); TOTAL PROTEIN 5.7 g/dL (6.4-8.2); eGFR NON BLACK RACES 42 (>60)
[2021-12-23] MEDS: ULTRAM PO SCH ×2 (08:10→21:03)
[2021-12-23] MEDS: XANAX PO SCH ×2 (08:10→21:03)
[2021-12-23] MEDS ORDERED: LEXAPRO ONE (08:14)
[2021-12-23] MEDS: VITAMIN D3 125 mcg (5,000 UNITS) PO SCH (08:15)
[2021-12-23] MEDS: LEXAPRO PO SCH (08:16)
[2021-12-23] MEDS: SYNTHROID 150 mcg TAB PO SCH (08:16)
[2021-12-23] MEDS: CLARITIN PO SCH (08:16)
[2021-12-23] MEDS: MORPHINE SULFATE INJ 2 MG INJ IVP PRN ×2 (08:18→13:47)
[2021-12-23] MEDS ORDERED: RABEPRAZOLE 20 MG PO SCH (09:00)
[2021-12-23] MEDS ORDERED: DESLORATADINE 5 MG PO SCH (09:00)
[2021-12-23] MEDS ORDERED: PROTONIX TAB 40 MG PO SCH (09:00)
--- NOTE | 2021-12-23 11:37 | DR.H&P ---
H&P - History & Physical for Day of: H&P Date: 12/22/21 - Chief Complaint Chief Complaint: NAUSEA, VOMITING, WEAKNESS, DECREASED APPETITE, INTRACTABLE LOW BACK PAIN - History of Present Illness History of Present Illness: IS A 76 YEAR OLD PATIENT OF OURS. SHE WAS A DIRECT ADMISSION DUE TO COMPLAINTS OF NAUSEA, VOMITING, WEAKNESS, DECREASED APPETITE, AND PERSISTENT LOW BACK PAIN. NAUSEA, VOMITING, AND WEAKNESS STARTED 2-3 DAYS AGO. BACK PAIN HAS BEEN PRESENT FOR SEVERAL MONTHS. SHE CURRENTLY USES TRAMADOL AT HOME FOR PAIN. BACK PAIN IS DESCRIBED CONSTANT, DULL, AND IS CURRENT RATED A 6/10. PAIN IS WORSE WITH MOVEMENT AND MODERATELY LIMITS ACTIVITIES. SHE ADMITS TO ABDOMINAL CRAMPING, DIFFUSE. PMH INCLUDES HYPOTHYROIDISM, COLON CANCER, APPENDECTOMY, CHOLECYSTECTOMY, BOWEL RESECTION WITH COLOSTOMY, HERNIA REPAIR. ON ARRIVAL TO THE HOSPITAL, VITALS WERE 97.7-74-18-99%-105/69. LABS WERE OBTAINED. WBC 4.7, HGB 10.8, HCT 31.7, PLT COUNT 171, SODIUM 140, POTASSIUM 4.3, CHLORIDE 108, BUN 19, CREATININE 1.66, GLUCOSE 131, CALCIUM 8.7, AST 21, ALT 17, ALK PHOS 70, ALBUMIN 3.0. URINALYSIS WAS OBTAINED AND WAS UNREMARKABLE. COVID-19 NEGATIVE. A URINE CULTURE WAS SET UP. SHE WAS STARTED ON NORMAL SALINE AT 75 ML/HR, PEPCID 20MG IV Q12H, PROTONIX 40MG IV DAILY, MORPHINE SULFATE 2MG IV Q4H PRN PAIN, AND HER HOME MEDICATIONS OF ULTRAM, CRESTOR, XARELTO, CLARITIN, SYNTHROID, LEXAPRO, AND XANAX WERE RESUMED. WE PLAN TO OBTAIN A LUMBAR SPINE MRI. OTHERWISE, WE WILL FOLLOW-UP WITH AM LABS AND CONTINUE TO MONITOR. TIME SPENT ON CLINICAL ASSESSMENT, REVIEWING LABS AND IMAGING, DECISION MAKING, AND DOCUMENTATION GREATER THAN 75 MINUTES. - Past Medical History Past Medical History: Hypothyroidism, PUD Additional Medical History: HISTORY OF COLON CANCER - Past Surgical History Surgical History: Appendectomy, Bowel Resection, Cholecystectomy, Other Additional Surgical History: COLOSTOMY - Family History Family Medical History: Diabetes Mellitus, Cancer, Hypertension - Social History Does patient currently use any type of tobacco product: No Have you used tobacco products in the last 12 months: No Type of Tobacco Use: None Does any household member use tobacco: No Alcohol Use: None Drug Use: Prescription Drugs - Medications Home Medications: Penicillins Allergy (Verified 12/12/17 09:01) CONTINUE taking the following medications desloratadine 5 mg PO DAILY 12/22/21 [History] levothyroxine 150 mcg PO ONCE 12/22/21 [History] rabeprazole 20 mg PO DAILY 12/22/21 [History] tramadol 50 mg PO BID 12/22/21 [History] - Review of Systems Constitutional: Weakness Eyes: No Symptoms Reported ENT: No Symptoms Reported Respiratory: No Symptoms Reported Cardiovascular: No Symptoms Reported Gastrointestinal: See HPI, Nausea, Vomiting, Abdominal Pain Genitourinary: No Symptoms Reported Musculoskeletal: Back Pain Skin: No Symptoms Reported Neurological: Weakness - Physical Exam Vital Signs: Temperature 97.6 F Pulse Rate [Left Brachial] 48 Respiratory Rate 18 Blood Pressure [Left Arm] 118/56 Blood Pressure [Right Arm] 89/50 O2 Sat by Pulse Oximetry 96 Oriented: Normal Eyes: Normal Ear: Normal Nose: Normal Throat: Normal Respiratory: Diminished Throughout Cardiovascular: Normal : Normal Auscultation: Bowel Sounds: Normal Palpation: Normal Tenderness: Normal Skin: Decreased [place] Musculoskeletal: Back:Lumbar, Tender Psychiatric: Normal Mood Description: Calm Affect: Normal Speech Pattern: Clear - Assessment/Plan (1) Dehydration Status: Acute Plan: ADMIT, NORMAL SALINE AT 75 ML/HR, PEPCID 20MG IV Q12H, PROTONIX 40MG IV DAILY, MORPHINE SULFATE 2MG IV Q4H PRN PAIN, RESUME HOME MEDS (2) Acute gastroenteritis Status: Acute (3) Intractable low back pain Status: Acute - Allergies Allergies/Adverse Reactions: Allergies Allergy/AdvReac Type Severity Reaction Status Date / Time Penicillins Allergy Verified 12/12/17 09:01
[2021-12-23] MEDS ORDERED: PROTONIX INJ 40 MG VIAL IVP SCH (12:00)
--- NOTE | 2021-12-23 12:11 | RAD ---
HISTORYBACK PAINSTUDYX-ray lumbar spine three viewsCOMPARISONMRI from same dayFINDINGSProminent levoscoliosis is seen with right lateral osteophytes. No compression fracture or spondylolisthesis is seen. Hypertrophic arthritic facet changes are seen in the mid to lower lumbar spine. Surgical clips are seen in the pelvis.IMPRESSIONProminent scoliosis and moderate degenerative changes are seen.Electronically signed by: Sridhar Polanco (December 23, 2021 12:11:09)
--- NOTE | 2021-12-23 12:11 | MRI ---
HISTORYBACK PAINSTUDYMRI L SPINE W/O IV CONTRASTCOMPARISONAbdomen CT 07/13/2021TECHNIQUEMultiplanar multisequence MRI of the lumbar spine was obtained without IV contrast.FINDINGSThe conus terminates at the L1 level. No spondylolisthesis. There is persistent scoliosis. No compression fracture is seen. 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 Incidental note is made of a probable 4.7 cm left renal cyst is similar to prior CT. Another right renal cyst is only partially included but was identified on prior CT, also.T12 -- L1: No significant stenosis.L1 -- L2: No significant stenosis.L2 -- L3: Mild posterior element hypertrophy is seen with moderate posterior osteophytes and central disc osteophyte complex. Moderate neural foraminal narrowing is seen. Mild thecal sac effacement is seen. Mild right lateral recess stenosis is seen.L3 -- L4: Mild posterior osteophytes and posterior element hypertrophy cause moderate right neural foraminal narrowing and mild left neural foraminal narrowing. Little thecal sac effacement and right lateral recess stenosis is seen.L4 -- L5: Posterior osteophytes and likely central disc bulge are seen with mild posterior element hypertrophy. Moderate neural foraminal narrowing is seen without evidence of nerve root compression. There is moderate right lateral recess stenosis with with contact but no definite compression of the right L5 nerve root. Mild thecal sac effacement is seen. Little left lateral recess stenosis is seen.L5 -- S1:Mild posterior osteophytes are seen with mild facet hypertrophy. Moderate left neural foraminal narrowing is seen.IMPRESSIONProbable disc bulges present at L4-5, similar to prior CT exam. Posterior osteophytes and facet hypertrophy are seen at this level. There is contact of the right L5 nerve root in the right lateral recess without evidence of nerve root compression. There is moderate bilateral neural foraminal narrowing.Electronically signed by: Sridhar Polanco (December 23, 2021 12:10:15)
[2021-12-23] MEDS: PEPCID 20 MG VIAL 20 MG in NS 50 ML IV 50 ML IV SCH ×2 (12:34→21:03)
[2021-12-23] MEDS: PROTONIX INJ 40 MG VIAL IVP SCH (21:03)
[2021-12-23] MEDS: CRESTOR TAB 10 MG PO SCH (21:03)
[2021-12-24 05:04] LABS: BASOPHILS % (AUTO) 0.5 % (0.2-1.0); EOSINOPHILS # (AUTO) 0.2 x10^3/uL (0.0-0.2); HEMATOCRIT 28.8 % (36.0-47.0); HEMOGLOBIN 9.9 g/dL (12.0-16.0); LYMPHOCYTES # (AUTO) 1.3 X10^3/uL (1.3-2.9); LYMPHOCYTES % (AUTO) 37.7 % (21.0-51.0); MEAN CORPUSCULAR HEMOGLOBIN 30.9 pg (27.0-34.0); MEAN CORPUSCULAR HGB CONC 34.5 g/dL (33.0-35.0); MEAN CORPUSCULAR VOLUME 89.6 fL (80.0-100.0); MEAN PLATELET VOLUME 7.7 fL (7.4-11.0); MONOCYTES # (AUTO) 0.2 x10^3/uL (0.3-0.8); MONOCYTES % (AUTO) 7.1 % (0.0-13.0); NEUTROPHILS # (AUTO) 1.7 x10^3/uL (2.2-4.8); NEUTROPHILS % (AUTO) 49.7 % (42.0-75.0); RED BLOOD COUNT 3.21 X10^6/uL (3.5-5.4); RED CELL DISTRIBUTION WIDTH 13.7 % (11.6-16.5); WHITE BLOOD COUNT 3.4 X10^3/uL (3.6-10.0)
[2021-12-24 05:34] LABS: ALANINE AMINOTRANSFERASE 13 Units/L (12-78); ALBUMIN 2.5 g/dL (3.4-5.0); ALKALINE PHOSPHATASE 67 Units/L (46-116); ASPARTATE AMINO TRANSFERASE 20 Units/L (15-37); BLOOD UREA NITROGEN 14 mg/dL (7-18); CALCIUM 7.9 mg/dL (8.5-10.1); CARBON DIOXIDE 24.4 mmol/L (21-32); CHLORIDE 111 mmol/L (98-107); COR CA(FOR HYPOALB) 9.1 mg/dL (8.5-10.1); CREATININE 1.23 mg/dL (0.55-1.02); SODIUM 144 mmol/L (136-145); TOTAL PROTEIN 5.8 g/dL (6.4-8.2); eGFR NON BLACK RACES 45 (>60)
[2021-12-24] MEDS ORDERED: LEXAPRO ONE (07:55)
[2021-12-24] MEDS: XANAX PO SCH (09:22)
[2021-12-24] MEDS: CLARITIN PO SCH (09:22)
[2021-12-24] MEDS: SYNTHROID 150 mcg TAB PO SCH (09:22)
[2021-12-24] MEDS: LEXAPRO PO SCH (09:23)
[2021-12-24] MEDS: ULTRAM PO SCH (09:24)
[2021-12-24] MEDS: PEPCID 20 MG VIAL 20 MG in NS 50 ML IV 50 ML IV SCH (09:25)
[2021-12-24] MEDS: VITAMIN D3 125 mcg (5,000 UNITS) PO SCH (09:26)
[2021-12-24] MEDS: PROTONIX INJ 40 MG VIAL IVP SCH (09:26)
[2021-12-24 11:14] VITALS: BP 118/59
[2021-12-24] MEDS ORDERED: XARELTO PO SCH (17:00)
== END 2021-12-24 10:47 | disposition home or self-care (01) ==
LOC: MED/SURG
PROVIDERS: ADMIT Internal Medicine; ATTEND Internal Medicine